=== PATIENT | male | born 1980 | race Caucasian/White ===

== ENCOUNTER → 2018-05-20 | Outpatient (CLI) | payer BC ==
[~2018-05-20] MED LIST: AC500T PO; ACHYD1T PO; CPR250T PO; CPR500T PO; FEXO30TA17 PO; HYDR-229 PO; HYDR-2890 PO; HYDR1TAB PO; HYOS0.1216 PO; PHEN200T16 PO; PHEN200T27 PO; PRD20T PO; PRM25T PO; SULF-222 PO
--- NOTE | 2018-05-20 13:14 | Diagnostic Imaging Report ---
INDICATION: Joint pain and swelling. Study is performed to evaluate for an inflammatory arthritis. EXAMINATION: Multiple views of bilateral feet were obtained. FINDINGS: MTP and interphalangeal joints are unremarkable apart from mild degenerative changes of the first MTP joints bilaterally with mild joint space narrowing. No osseous erosive changes are seen. There are no fractures. Midfoot and hindfoot are unremarkable bilaterally. Soft tissues are unremarkable. IMPRESSION: Essentially unremarkable bilateral feet. No acute finding is seen. No osseous erosive changes are detected. Dictated by: Dictated on workstation # [id number]
--- NOTE | 2018-05-20 13:17 | Diagnostic Imaging Report ---
INDICATION: Pain and swelling in the joints. TIME OF EXAM: 11:08 a.m. FINDINGS: Multiple views of bilateral hands were obtained. MCP and interphalangeal joints are unremarkable bilaterally. No significant joint space narrowing is seen. No osseous erosions or bony production is seen. Soft tissues are unremarkable. Carpi are unremarkable. There are no fractures. IMPRESSION: Unremarkable bilateral hand radiographs. Dictated by: Dictated on workstation # [id number]
== END ==
LOC: RAD 10:45
PROVIDERS: ATTEND Internal Medicine Rheumatology
DX: M19.041 Primary osteoarthritis, right hand (principal); M19.042 Primary osteoarthritis, left hand; M19.072 Primary osteoarthritis, left ankle and foot; M19.071 Primary osteoarthritis, right ankle and foot

== ENCOUNTER 2018-10-27 13:10 | Emergency (ER) | payer BC ==
[~2018-10-27] VITALS: Ht 182.9 cm; Wt 117.9 kg
[2018-10-27] MEDS ORDERED: LOSA50TA63 PO (13:42)
[2018-10-27] MEDS ORDERED: DEXT30TA12 (13:42)
[2018-10-27] MEDS ORDERED: CELE-63 (13:42)
[2018-10-27] MEDS ORDERED: LYRICA (13:42)
[2018-10-27] MEDS ORDERED: KETOROLAC 30 MG/ML VIAL IVP ONE (13:45)
[2018-10-27 13:48] LABS: BASOPHILS # (AUTO) 0.1 10^3/uL (0.0-0.1); BASOPHILS % (AUTO) 2 % (0-10); EOSINOPHILS # (AUTO) 0.2 10^3/uL (0.0-0.3); EOSINOPHILS % (AUTO) 2 % (0-10); HEMATOCRIT 45 % (40-54); HEMOGLOBIN 15.4 G/DL (13.3-17.7); LYMPHOCYTES # (AUTO) 3.1 X 10^3 (1.0-4.0); LYMPHOCYTES % (AUTO) 36 % (12-44); MEAN CORPUSCULAR HEMOGLOBIN 30 PG (25-34); MEAN CORPUSCULAR HGB CONC 34 G/DL (32-36); MEAN CORPUSCULAR VOLUME 86 FL (80-99); MEAN PLATELET VOLUME 10.1 FL (7.4-10.4); MONOCYTES # (AUTO) 0.8 X 10^3 (0.0-1.0); MONOCYTES % (AUTO) 10 % (0-12); NEUTROPHILS # (AUTO) 4.2 X 10^3 (1.8-7.8); NEUTROPHILS % (AUTO) 50 % (42-75); PLATELET COUNT 275 10^3/uL (130-400); RED CELL DISTRIBUTION WIDTH 14.2 % (10.0-14.5); WHITE BLOOD COUNT 8.4 10^3/uL (4.3-11.0)
[2018-10-27] MEDS ORDERED: NS IV 1000 ML 1,000 ML ONE (13:53)
[2018-10-27 13:57] LABS: BUN/CREATININE RATIO 18; CALCIUM 9.4 MG/DL (8.5-10.1); CARBON DIOXIDE 22 MMOL/L (21-32); CHLORIDE 107 MMOL/L (98-107); GFR ESTIMATED > 60; GLUCOSE 129 MG/DL (70-105); POTASSIUM 4.1 MMOL/L (3.6-5.0); SODIUM 140 MMOL/L (135-145)
[2018-10-27] MEDS ORDERED: NS IV 1000 ML 1,000 ML IV SCH (14:00)
--- NOTE | 2018-10-27 14:04 | ED GU-Female ---
General Chief Complaint: - Urinary Stated Complaint: LOWER BACK PAIN Nursing Triage Note: PATIENT STATES THAT HE IS HERE FOR KIDNEY STONES. HE HAS A HX OF STONES AND PASSED 2-3 SMALL STONES ABOUT A WEEK AGO. PATIETN STATES HE HAS NOT URINATED IN SEVERAL HOURS BUT FEELS LIKE HE NEEDS TO. Nursing Sepsis Screen: No Definite Risk Source: patient Exam Limitations: no limitations History of Present Illness Date Seen by Provider: Oct 27, 2018 Time Seen by Provider: 14:03 Initial Comments To ER with reports of a kidney stone. He's had right flank pain for about 2 weeks, he's passed 2 stones he states. Today the pain radiates from the right flank to the tip of the penis. No vomiting. No fevers or chills. He does have urinary frequency. States he is otherwise healthy with the exception of some ch ronic joint pains and is scheduled to see the [facility] for his fibromyalgia. Timing/Duration: constant Severity/Quality: moderate Location: right flank Radiation: none Activities at Onset: none Prior Genitourinary Problems: none Associated Symptoms: dysuria Allergies and Home Medications Allergies Coded Allergies: No Known Drug Allergies (Unverified , 11/10/10) Home Medications Hydrocodone Bit/Acetaminophen 1 Tab Tablet, 1-2 TAB PO Q4H PRN, (Reported) PRN PAIN Hydrocodone/Acetaminophen 1 Each Tablet, 1 TAB PO Q4-6HR Prescribed by: BROOKE MUKHERJEE on 10/27/18 152 Hyoscyamine Sulfate 0.125 Mg Tab, 1-2 TAB PO Q4HR PRN, (Reported) PRN BLADDER PAIN Ketorolac Tromethamine 10 Mg Tablet, 10 MG PO Q8H PRN for PAIN-MODERATE TO SEVERE Prescribed by: BROOKE MUKHERJEE on 10/27/18 152 Phenazopyridine Hcl 200 Mg Tablet, 200 MG PO TID PRN, (Reported) PRN BLADDER SPASMS Sulfamethoxazole/Trimethoprim 1 Each Tablet, 1 EACH PO BID Prescribed by: BROOKE MUKHERJEE on 10/27/18 1523 Patient Home Medication List Home Medication List Reviewed: Yes Review of Systems Review of Systems Constitutional: see HPI EENTM: see HPI Respiratory: no symptoms reported Cardiovascular: no symptoms reported Genitourinary: see HPI Musculoskeletal: no symptoms reported Skin: no symptoms reported Psychiatric/Neurological: No Symptoms Reported Endocrine: No Symptoms Reported Past Mtubcpv-Rhwaab-Eczsqt Hx Patient Social History Alcohol Use: Occasionally Uses Recreational Drug Use: No Smoking Status: Never a Smoker 2nd Hand Smoke Exposure: No Recent Foreign Travel: No Contact w/Someone Who Travel: No Recent Infectious Disease Expo: No Immunizations Up To Date Tetanus Booster (TDap): Unknown Past Medical History Surgeries: Yes (arthroscopic surgery left knee x2, cervical spine surgery) Respiratory: No Cardiac: Yes Neurological: No Reproductive Disorders: No Sexually Transmitted Disease: No HIV/AIDS: No Kidney Stones Gastrointestinal: Yes (acute gastroenteritis) Musculoskeletal: Yes (CERVICAL SX c5-c6 fusion) Endocrine: No Cancer: No Psychosocial: No Integumentary: No Blood Disorders: No Adverse Reaction/Blood Tranf: No Family Medical History No Pertinent Family Hx Physical Exam Vital Signs Vital Signs - First Documented 10/27/18 13:17 Temp 99.0 Pulse 66 Resp 22 B/P (MAP) 158/118 (131) Pulse Ox 98 Capillary Refill : Less Than 3 Seconds Height, Weight, BMI Height: 6'0.00" Weight: 260lbs. 0oz. 117.984558qa; 37.29 BMI Method:Actual General Appearance: WD/WN, no apparent distress HEENT: PERRL/EOMI, normal ENT inspection Respiratory: no respiratory distress, no accessory muscle use Extremities: normal range of motion, non-tender Neurologic/Psychiatric: alert, normal mood/affect, oriented x 3 Skin: normal color, warm/dry Progress/Results/Core Measures Suspected Sepsis Recent Fever Within 48 Hours: No Infection Criteria Present: Suspected New Infection New/Unexplained Altered Menta: No Sepsis Screen: No Definite Risk SIRS Temperature:99.0 Pulse: 66 Respiratory Rate: 22 Laboratory Tests 10/27/18 13:22: White Blood Count 8.4 Blood Pressure 158 /118 Mean: 131 Laboratory Tests 10/27/18 13:22: Creatinine 0.90, Platelet Count 275 Results/Orders Lab Results Laboratory Tests Test 10/27/18 13:22 10/27/18 13:57 Range/Units White Blood Count 8.4 4.3-11.0 10^3/uL Red Blood Count 5.22 4.35-5.85 10^6/uL Hemoglobin 15.4 13.3-17.7 G/DL Hematocrit 45 40-54 % Mean Corpuscular Volume 86 80-99 FL Mean Corpuscular Hemoglobin 30 25-34 PG Mean Corpuscular Hemoglobin Concent 34 32-36 G/DL Red Cell Distribution Width 14.2 10.0-14.5 % Platelet Count 275 130-400 10^3/uL Mean Platelet Volume 10.1 7.4-10.4 FL Neutrophils (%) (Auto) 50 42-75 % Lymphocytes (%) (Auto) 36 12-44 % Monocytes (%) (Auto) 10 0-12 % Eosinophils (%) (Auto) 2 0-10 % Basophils (%) (Auto) 2 0-10 % Neutrophils # (Auto) 4.2 1.8-7.8 X 10^3 Lymphocytes # (Auto) 3.1 1.0-4.0 X 10^3 Monocytes # (Auto) 0.8 0.0-1.0 X 10^3 Eosinophils # (Auto) 0.2 0.0-0.3 10^3/uL Basophils # (Auto) 0.1 0.0-0.1 10^3/uL Sodium Level 140 135-145 MMOL/L Potassium Level 4.1 3.6-5.0 MMOL/L Chloride Level 107 98-107 MMOL/L Carbon Dioxide Level 22 21-32 MMOL/L Anion Gap 11 5-14 MMOL/L Blood Urea Nitrogen 16 7-18 MG/DL Creatinine 0.90 0.60-1.30 MG/DL Estimat Glomerular Filtration Rate > 60 BUN/Creatinine Ratio 18 Glucose Level 129 H 70-105 MG/DL Calcium Level 9.4 8.5-10.1 MG/DL Urine Color YELLOW Urine Clarity VERY CLOUDY H Urine pH 5 5-9 Urine Specific Walsh 1.025 H 1.016-1.022 Urine Protein 3+ H NEGATIVE Urine Glucose (UA) NEGATIVE NEGATIVE Urine Ketones NEGATIVE NEGATIVE Urine Nitrite POSITIVE H NEGATIVE Urine Bilirubin NEGATIVE NEGATIVE Urine Urobilinogen NORMAL NORMAL MG/DL Urine Leukocyte Esterase 2+ H NEGATIVE Urine RBC (Auto) 5+ H NEGATIVE Urine RBC TNTC H /HPF Urine WBC 50-100 H /HPF Urine Squamous Epithelial Cells NONE /HPF Urine Crystals PRESENT H /LPF Urine Calcium Oxalate Crystals RARE H /LPF Urine Bacteria MODERATE H /HPF Urine Casts NONE /LPF Urine Mucus SMALL H /LPF Urine Culture Indicated YES Urine Opiates Screen NEGATIVE NEGATIVE Urine Oxycodone Screen NEGATIVE NEGATIVE Urine Methadone Screen NEGATIVE NEGATIVE Urine Propoxyphene Screen NEGATIVE NEGATIVE Urine Barbiturates Screen NEGATIVE NEGATIVE Ur Tricyclic Antidepressants Screen NEGATIVE NEGATIVE Urine Phencyclidine Screen NEGATIVE NEGATIVE Urine Amphetamines Screen POSITIVE H NEGATIVE Urine Methamphetamines Screen NEGATIVE NEGATIVE Urine Benzodiazepines Screen NEGATIVE NEGATIVE Urine Cocaine Screen NEGATIVE NEGATIVE Urine Cannabinoids Screen NEGATIVE NEGATIVE My Orders Orders - BROOKE MUKHERJEE APRN Ua Culture If Indicated (10/27/18 13:42) Cbc With Automated Diff (10/27/18 13:42) Basic Metabolic Panel (10/27/18 13:42) Ed Iv/Invasive Line Start (10/27/18 13:42) Ketorolac Injection (Toradol Injection) (10/27/18 13:45) Ns Iv 1000 Ml (Sodium Chloride 0.9%) (10/27/18 14:00) Drug Screen Stat (Urine) (10/27/18 13:58) Abdomen/Kub 1view (10/27/18 13:58) Ct Abd/Pelvis Wo(Kidney Stone) (10/27/18 13:58) Ns Iv 1000 Ml (Sodium Chloride 0.9%) (10/27/18 13:53) Urine Culture (10/27/18 13:57) Ceftriaxone For Iv Use (Rocephin For I (10/27/18 14:30) Medications Given in ED Current Medications Medications Dose Ordered Sig/Javier Route Start Time Stop Time Status Last Admin Dose Admin Ceftriaxone Sodium 1000 mg/ Sterile Water 10 ml @ 200 mls/hr ONCE ONCE IV 10/27/18 14:30 10/27/18 14:32 DC 10/27/18 14:48 200 MLS/HR Ketorolac Tromethamine 15 mg ONCE ONCE IVP 10/27/18 13:45 10/27/18 13:46 DC 10/27/18 14:02 15 MG Vital Signs/I&O 10/27/18 13:17 Temp 99.0 Pulse 66 Resp 22 B/P (MAP) 158/118 (131) Pulse Ox 98 Capillary Refill : Less Than 3 Seconds Blood Pressure Mean: 131 Departure Impression Primary Impression: Right ureteral stone Additional Impression: Urinary tract infection Qualified Codes: N30.01 - Acute cystitis with hematuria Disposition: HOME, SELF-CARE Condition: Stable Departure-Patient Inst. Decision time for Depature: 14:41 Referrals: ARSEN RUCKER MD (PCP/Family) Primary Care Physician ROHINI GONZALEZ MD Patient Instructions: Kidney Stone Diet, Urinary Tract Infection, Adult (DC) Add. Discharge Instructions: 1. Return to ER for any concerns 2. Follow-up with Dr. Gonzalez. See Dr Gonzalez tomorrow at 11am. Take the antibiotic as directed. Return to ER for any worsening uncontrollable pain, fevers or nausea/vomiting. All discharge instructions reviewed with patient and/or family. Voiced understanding. Scripts Sulfamethoxazole/Trimethoprim (Bactrim Ds Tablet) 1 Each Tablet 1 EACH PO BID, #20 TAB Prov: BROOKE MUKHERJEE APRN 10/27/18 Ketorolac Tromethamine (Ketorolac Tromethamine) 10 Mg Tablet 10 MG PO Q8H PRN for PAIN-MODERATE TO SEVERE, #9 TAB Prov: BROOKE MUKHERJEE APRN 10/27/18 Hydrocodone/Acetaminophen (Merigold 5-325 Tablet) 1 Each Tablet 1 TAB PO Q4-6HR for Pain MDD 10 TABS for 7 Days, #30 TAB Prov: BROOKE MUKHERJEE APRN 10/27/18 Work/School Note: Work Release Form Date Seen in the Emergency Department: Oct 27, 2018 Return to Work: Oct 30, 2018 Copy Copies To 1: ROHINI GONZALEZ MD, PETER J APRN Oct 27, 2018 14:04
[2018-10-27 14:05] LABS: BILIRUBIN,URINE NEGATIVE (NEGATIVE); CLARITY,URINE VERY CLOUDY; COLOR,URINE YELLOW; GLUCOSE, URINE (UA) NEGATIVE (NEGATIVE); KETONES,URINE NEGATIVE (NEGATIVE); LEUKOCYTE ESTERASE ,URINE 2+ (NEGATIVE); NITRITE,URINE POSITIVE (NEGATIVE); PH,URINE 5 (5-9); PROTEIN,URINE 3+ (NEGATIVE); UROBILINOGEN,URINE NORMAL (NORMAL)
[2018-10-27 14:13] LABS: RBC,URINE TNTC /HPF
[2018-10-27 14:14] LABS: BACTERIA,URINE MODERATE /HPF; CALCIUM OXALATE CRYSTALS,UR RARE /LPF; WBC,URINE 50-100 /HPF
[2018-10-27 14:18] LABS: AMPHETAMINE SCREEN, URINE POSITIVE (NEGATIVE); BARBITURATE SCREEN URINE NEGATIVE (NEGATIVE); BENZODIAZEPINES SCREEN URINE NEGATIVE (NEGATIVE); CANNABINOID SCREEN, URINE NEGATIVE (NEGATIVE); COCAINE SCREEN URINE NEGATIVE (NEGATIVE); METHADONE STAT NEGATIVE (NEGATIVE); METHAMPHETAMINE SCREEN URINE S NEGATIVE (NEGATIVE); OPIATE SCREEN URINE NEGATIVE (NEGATIVE); OXYCODONE STAT NEGATIVE (NEGATIVE); PROPOXYPHENE STAT NEGATIVE (NEGATIVE); TRICYCLIC ANTIDEPRESSANTS SCRE NEGATIVE (NEGATIVE)
[2018-10-27] MEDS ORDERED: cefTRIAXone FOR IV USE 1,000 MG in WATER (STERILE) FOR INJECTION 10 ML IV ONE (14:30)
--- NOTE | 2018-10-27 14:50 | Diagnostic Imaging Report ---
REASON FOR EXAM: Renal stones. COMPARISON: None TECHNIQUE: frontal supine view of the abdomen FINDINGS: Calcification is seen in the right aspect of the pelvis in the expected location of the distal right ureter, suspicious for renal calculi. The bowel gas pattern is nondistended. No large collection of free intraperitoneal air is seen. Scattered small amounts of gas and fecal material are present in the colon. The osseous structures are age-appropriate. IMPRESSION: Calcification in the right aspect of the pelvis in the expected location of the distal right ureter, suspicious for renal calculi. Dictated by: Dictated on workstation # [id number]
--- NOTE | 2018-10-27 14:57 | Diagnostic Imaging Report ---
PROCEDURE: CT urinary tract, rule out kidney stone. TECHNIQUE: Multiple contiguous axial images were obtained through the abdomen and pelvis without the use of intravenous contrast. Auto Exposure Controls were utilized during the CT exam to meet ALARA standards for radiation dose reduction. INDICATION: Low back pain. History of kidney stones. COMPARISON: Abdominal radiograph 01/05/2013. FINDINGS: 1.0 cm renal stone in the distal right ureter near the ureterovesicular junction. This results in moderate right ureteral pyelocaliectasis. Nonobstructing 0.3 cm calyceal tip renal stone in the upper pole the left kidney. There is also nonobstructing 0.3 cm renal stone in the proximal left ureter near the ureteropelvic junction. Lung bases are clear. The liver, gallbladder, pancreas, spleen, adrenals, appendix and bladder are negative. Mild colonic diverticulosis without evidence of active diverticulitis. No lymphadenopathy. No free intraperitoneal air or fluid. No evidence of bowel obstruction. No acute osseous findings. IMPRESSION: 1.0 cm obstructing renal stone near the right ureterovesicular junction resulting in moderate right hydronephrosis. There is also a nonobstructing 0.3 cm renal stone in the ureteropelvic junction on the left. Dictated by: Dictated on workstation # [id number]
[2018-10-27] MEDS ORDERED: KETO10TA PO (15:23)
[2018-10-27] MEDS ORDERED: SULF1TAB35 PO (15:23)
[2018-10-27] MEDS ORDERED: HYDR-4226 PO (15:23)
[2018-10-27] MEDS ORDERED: HYDROcodone/APAP 5 MG/325 MG (LORTAB) TAB ONE (15:30)
[2018-10-27 15:40] VITALS: BP 149/91
[2018-10-27] MEDS ORDERED: HYDROcodone/APAP 5 MG/325 MG (LORTAB) TAB PO ONE (15:45)
== END 2018-10-27 15:40 | disposition home or self-care (01) ==
LOC: EDUNIT# 13:10 → ER 13:11
DX: N13.2 Hydronephrosis with renal and ureteral calculous obstruction (principal); N39.0 Urinary tract infection, site not specified; M79.7 Fibromyalgia; Z98.890 Other specified postprocedural states; Z87.19 Personal history of other diseases of the digestive system
CPT/HCPCS: 36415; 74018; 74176; 80048; 80306; 81000; 85025; 87077; 87088; 87186; 96361; 96365; 96375

== ENCOUNTER 2018-10-31 06:24 | Outpatient (CLI) | payer BC ==
[~2018-10-31] VITALS: Ht 182.9 cm; Wt 117.9 kg
[~2018-10-31 06:24] MED LIST changes: +CELE-63; +DEXT30TA12; +HYDR-4226 PO; +KETO10TA PO; +LOSA50TA63 PO; +LYRICA; +SULF1TAB35 PO
[2018-10-31] MEDS ORDERED: PREG75CA PO (12:22)
[2018-10-31] MEDS ORDERED: AMPH30TA2 PO (12:22)
[2018-10-31] MEDS ORDERED: ACET-2650 PO (12:22)
[2018-10-31] MEDS ORDERED: METR1KIT2 TP (12:22)
[2018-10-31] MEDS ORDERED: CHOL20003 PO (12:22)
[2018-10-31] MEDS ORDERED: TR1C15 TP (12:22)
[2018-10-31] MEDS ORDERED: CELE200C PO (12:22)
[2018-11-01] MEDS ORDERED: TRAM50TA2 PO (08:38)
[2018-11-01] MEDS ORDERED: SULF1TAB35 PO (08:38)
[2018-11-01] MEDS ORDERED: TAMS0.4C98 PO (08:38)
== END 2018-10-31 12:43 | disposition home or self-care (01) ==
LOC: PREOP 06:24
PROVIDERS: ATTEND Urology
DX: Z01.818 Encounter for other preprocedural examination (principal)

== ENCOUNTER 2018-11-01 05:51 | Day surgery (SDC) | payer BC ==
[~2018-11-01] VITALS: Ht 182.9 cm; Wt 117.9 kg
[2018-11-01] VITALS (11 sets, daily range): BP systolic 96–131; BP diastolic 56–81
[~2018-11-01 05:51] MED LIST changes: +ACET-2650 PO; +AMPH30TA2 PO; +CELE200C PO; +CHOL20003 PO; +METR1KIT2 TP; +PREG75CA PO; +TR1C15 TP
--- OUTSIDE RECORDS SUMMARY | 2018-11-01 05:55 | XMS REPORT ---
Author Author DIANDRA GILMAN [facility] eClinicalWorks Address Unknown Phone Unavailable Care Team Providers Care Internet Sales Associate Name Role Phone DIANDRA GILMAN CP Unavailable Allergies No Known Allergies Problems Problem Type Condition Code Onset Dates Condition Status Assessment Encounter for immunization Z23 Active Medications No Known Medications Procedures Procedure Coding System Code Date SINGLE IMMUNIZATION ADMIN CPT-4 23719 Jan 17, 2015 FLUARIX QUAD (3 & UP)-GSK-2014 CPT-4 06149 Jan 17, 2015 Results No Known Results Immunizations Vaccine Administration Date FLUARIX QUAD (3 & UP)-GSK-2014Jan 17, 2015 Summary Purpose eClinicalWorks Submission
--- OUTSIDE RECORDS SUMMARY | 2018-11-01 05:55 | XMS REPORT ---
Author Author RITCHIE Queen Organization [facility] Address [address] [place] [address] Care Team Providers Care Magneto Specialist Name Role Phone Bernice RITCHIE Unavailable PROBLEMS Type Condition ICD9-CM Code [id number] Code Onset Dates Condition Status SNOMED Code Problem Reactive depression F32.9 Active [id number] ALLERGIES No Information ENCOUNTERS Encounter Location Date Diagnosis [place] [id number] [place] [phone] Jan, Reactive depression F32.9 [place] [id number] [place] [phone] Dec, Reactive depression F32.9 [place] [id number] [place] [phone] Nov, Reactive depression F32.9 [place] [id number] [place] [phone] Nov, Reactive depression F32.9 [place] [id number] [place] [phone] Jan, Encounter for immunization Z23 IMMUNIZATIONS No Known Immunizations SOCIAL HISTORY Never Assessed REASON FOR VISIT f/u PLAN OF CARE Activity Details Follow Up Next available, 6 Weeks Reason:Depression VITAL SIGNS MEDICATIONS Unknown Medications RESULTS No Results PROCEDURES Procedure Date Ordered Result Body Site Psychotherapy, patient &/family, 45 minutes, established patient Jan 15, 2017 INSTRUCTIONS MEDICATIONS ADMINISTERED No Known Medications
--- OUTSIDE RECORDS SUMMARY | 2018-11-01 05:55 | XMS REPORT ---
Author Author RITCHIE Queen Organization [facility] Address [address] [place] [address] Care Team Providers Care Tailings Man Name Role Phone Bernice RITCHIE Unavailable PROBLEMS Type Condition ICD9-CM Code [id number] Code Onset Dates Condition Status SNOMED Code Problem Reactive depression F32.9 Active [id number] ALLERGIES No Information ENCOUNTERS Encounter Location Date Diagnosis [place] [id number] [place] [phone] Jan, Reactive depression F32.9 [place] [id number] [place] [phone] Dec, Reactive depression F32.9 [place] [id number] [place] [phone] Nov, Reactive depression F32.9 [place] [id number] [place] [phone] Nov, Reactive depression F32.9 [place] [id number] [place] [phone] Jan, Encounter for immunization Z23 IMMUNIZATIONS No Known Immunizations SOCIAL HISTORY Never Assessed REASON FOR VISIT F/U PLAN OF CARE Activity Details Follow Up Next available Reason:Depression, anger VITAL SIGNS MEDICATIONS Unknown Medications RESULTS No Results PROCEDURES Procedure Date Ordered Result Body Site Psychotherapy, patient &/family, 60 minutes, established patient Dec 16, 2016 INSTRUCTIONS MEDICATIONS ADMINISTERED No Known Medications
--- OUTSIDE RECORDS SUMMARY | 2018-11-01 05:56 | XMS REPORT | Continuity of Care Document ---
Author Author [facility] Organization [facility] Address Unknown Phone Unavailable Care Team Providers Care Equity Structurer Name Role Phone ARSEN RUCKER MD PP Insurance Providers Payer Name Policy Number Subscriber Name Relationship [facility] [id number] Colt Borges 01 Self / Same As Patient Advance Directives Directive Response Recorded Date Advance Directives N 12/21/12 8:26am Health Care Power of Offshore Wind Turbine Technician N 12/21/12 8:26am Organ Donor Y 12/21/12 8:26am Problems No Known Problems or Medical conditions. Family History History Response Recorded Date/Time Hx Family Cancer Y 12/12/12 11:40am Hx Family Breast Cancer Y mother of breast ca 12/12/12 11:40am Hx Family Cardiac Disorders Y father has cardiac stents 12/12/12 11:40am Hx Family Stroke Y father 12/12/12 11:40am Hx Family Hypertension Y father 12/12/12 11:40am Social History History Response Recorded Date/Time Alcohol Use Denies Use 12/12/12 11:35am Recreational Drug Use N 12/12/12 11:35am Recent Foreign Travel N 12/12/12 11:35am Recent Infectious Disease Exposure N 12/12/12 11:35am Hospitalization with Isolation Denies 12/14/12 5:09pm Sexually Transmitted Disease N 12/12/12 11:35am HIV/AIDS N 12/12/12 11:35am Allergies, Adverse Reactions, Alerts Allergen Type Severity Reaction Last Updated No Known Drug Allergies 11/10/10 Medications Medication Dose Units Route Sig Qty Days Acetaminophen/Hydrocodone Bitart (Lorcet Plus 10/325 Mg) 1 - 2 Tab PO Q4H PRN Hyoscyamine Sulfate (Levsin 0.125 Mg Tab) 1 - 2 Tab PO Q4HR PRN Phenazopyridine Hcl (Pyridium) 200 Mg PO TID PRN Ciprofloxacin HCl (Cipro) 250 Mg PO BID Acetaminophen (Tylenol) 1000 Mg PO DAILY PRN Phenazopyridine Hcl 200 Mg PO BID Ciprofloxacin (Cipro) 500 Mg PO BID Trimethoprim/Sulfamethoxazole (Bactrim Ds) 1 Ea PO BID 7 Promethazine HCl (Phenergan 25 Mg) 1 Tab PO QID PRN 10 Acetaminophen/Hydrocodone Bitart (Vicodin 5-500 Tablet) 1 - 2 Each PO Q4HR PRN 14 Prednisone 20 Mg PO DAILY 20 Acetaminophen/Hydrocodone Bitart (Lortab 10-500 Tablet) 1 Each PO Q 4 - 6 HRS PRN 30 Hydrocodone Bit/Acetaminophen (Hydrocodon-Acetaminophn 10-325) 1 Each PO Q6H Fexofenadine HCl (Pratibha) 1 Each PO DAILY Response Recorded Date/Time Status not known Unknown Results Test Date Result Interp. Ref. Range Alanine Aminotransferase (ALT/SGPT) December 12, 2012 7:25am 63 U/L N 30-65 Albumin December 12, 2012 7:25am 3.7 G/DL N 3.4-5.0 Alkaline Phosphatase December 12, 2012 7:25am 73 U/L N 50-136 Amylase Level October 14, 2012 9:19pm 32 U/L N 25-115 Aspartate Amino Transf (AST/SGOT) December 12, 2012 7:25am 23 U/L N 15-37 BUN/Creatinine Ratio December 12, 2012 7:25am 9 - Band Neutrophils November 18, 2012 6:35pm 8 % - Basophils # (Auto) December 12, 2012 7:25am 0.2 10^3/uL H 0.0-0.1 Basophils % (Manual) November 18, 2012 6:35pm 0 % - Basophils (%) (Auto) December 12, 2012 7:25am 3 % N 0-10 Blood Urea Nitrogen December 12, 2012 7:25am 9 MG/DL N 7-18 Calcium Level December 12, 2012 7:25am 8.5 MG/DL N 8.5-10.1 Carbon Dioxide Level December 12, 2012 7:25am 27 MMOL/L N 21-32 Chloride Level December 12, 2012 7:25am 103 MMOL/L N 101-110 Creatinine December 12, 2012 7:25am 1.0 MG/DL N 0.6-1.3 Eosinophils # (Auto) December 12, 2012 7:25am 0.1 10^3/uL N 0.0-0.3 Eosinophils % (Manual) November 18, 2012 6:35pm 0 % - Eosinophils (%) (Auto) December 12, 2012 7:25am 2 % N 0-10 Glucose Level December 12, 2012 7:25am 129 MG/DL H 74-106 Hematocrit December 12, 2012 7:25am 41 % N 40-54 Hemoglobin December 12, 2012 7:25am 13.9 G/DL N 13.3-17.7 Hemoglobin A1c December 13, 2012 5:00am 5.9 % N 4.5-6.2 Lipase November 18, 2012 6:35pm 85 U/L N 73-393 Lymphocytes # (Auto) December 12, 2012 7:25am 3.0 X 10^3 N 1.0-4.0 Lymphocytes % (Manual) November 18, 2012 6:35pm 4 % - Lymphocytes (%) (Auto) December 12, 2012 7:25am 41 % N 12-44 Mean Corpuscular Hemoglobin December 12, 2012 7:25am 29 PG N 25-34 Mean Corpuscular Hemoglobin Concent December 12, 2012 7:25am 34 G/DL N 32-36 Mean Corpuscular Volume December 12, 2012 7:25am 87 FL N 80-99 Mean Platelet Volume December 12, 2012 7:25am 9.8 FL N 7.4-10.4 Metamyelocytes % January 18, 2006 10:25am 1 - Monocytes # (Auto) December 12, 2012 7:25am 0.7 X 10^3 N 0.0-1.0 Monocytes % (Manual) November 18, 2012 6:35pm 2 % - Monocytes (%) (Auto) December 12, 2012 7:25am 10 % N 0-12 Monoscreen February 07, 2006 9:16pm Negative - Neutrophils # (Auto) December 12, 2012 7:25am 3.3 X 10^3 N 1.8-7.8 Neutrophils % (Manual) November 18, 2012 6:35pm 86 % - Neutrophils (%) (Auto) December 12, 2012 7:25am 45 % N 42-75 Platelet Count December 12, 2012 7:25am 277 10^3/uL N 130-400 Potassium Level December 12, 2012 7:25am 3.8 MMOL/L N 3.6-5.0 RBC Morphology Bizarre Forms January 18, 2006 10:25am Normal - Red Blood Count December 12, 2012 7:25am 4.72 10^6/uL N 4.35-5.85 Red Cell Distribution Width December 12, 2012 7:25am 13.5 % N 10.0-14.5 Semen Volume July 24, 2011 7:20am 3.3 ML N 1.5-5.0 Sodium Level December 12, 2012 7:25am 137 MMOL/L N 135-145 Sperm % Abnormal Morphology July 24, 2011 7:20am 15 % - Sperm % Normal Morphology July 24, 2011 7:20am 85 % - Sperm Count July 24, 2011 7:20am 184 MIL/ML N 60-200 Sperm Motility July 24, 2011 7:20am 50 % - Thyroid Stimulating Hormone (TSH) February 16, 2011 5:15pm 0.72 UIU/ML N 0.34-5.60 Thyroxine (T4) February 17, 2011 7:41am 7.8 UG/DL - Total Bilirubin December 12, 2012 7:25am 0.3 MG/DL N 0.0-1.0 Total Protein December 12, 2012 7:25am 6.8 G/DL N 6.4-8.2 Urine Bacteria December 12, 2012 8:00am FEW /HPF H - Urine Bilirubin December 12, 2012 8:00am 2+ H - Urine Casts December 12, 2012 8:00am NONE /LPF - Urine Clarity December 12, 2012 8:00am SLIGHTLY CLOUDY - Urine Color December 12, 2012 8:00am SAUL H - Urine Crystals December 12, 2012 8:00am NONE /LPF - Urine Culture Indicated December 12, 2012 8:00am YES - Urine Glucose (UA) December 12, 2012 8:00am 1+ H - Urine Granular Casts October 14, 2012 9:04pm RARE /LPF - Urine Hyaline Casts October 14, 2012 9:04pm 0- 2 /LPF H - Urine Ketones December 12, 2012 8:00am NEGATIVE - Urine Leukocyte Esterase December 12, 2012 8:00am NEGATIVE - Urine Mucus December 12, 2012 8:00am MODERATE /LPF H - Urine Nitrite December 12, 2012 8:00am POSITIVE H - Urine Other October 14, 2012 9:04pm FEW SPERM /HPF H - Urine Protein December 12, 2012 8:00am 2+ H - Urine RBC December 12, 2012 8:00am TNTC /HPF H - Urine Specific Ker[place] December 12, 2012 8:00am 1.025 H - Urine Squamous Epithelial Cells December 12, 2012 8:00am 0-2 /HPF - Urine Urobilinogen December 12, 2012 8:00am 4 MG/DL H - Urine WBC December 12, 2012 8:00am 0-2 /HPF - Urine pH December 12, 2012 8:00am 5 - White Blood Count December 12, 2012 7:25am 7.3 10^3/uL N 4.3-11.0 Estimat Glomerular Filtration Rate December 12, 2012 7:25am > 60 - Blood Morphology Comment November 18, 2012 6:35pm NORMAL - Testosterone Level February 17, 2011 7:41am 287 L NG/DL - Urine RBC (Auto) December 12, 2012 8:00am 5+ H - Procedures Procedure Code Date [ESWL] OF THE KIDNEY, URETER AND/OR BLADDER 98.51 12/14/12 CYSTOSCOPY NEC 57.32 12/14/12 URETERAL CATHETERIZATION 59.8 12/14/12 MRSA Screen 12/13/12 Urine Culture 12/12/12 Encounters Encounter Location Date/Time Discharged Inpatient [facility] 12/12/12 10:00am Departed Emergency Room [facility] 11/18/12 5:21pm
--- OUTSIDE RECORDS SUMMARY | 2018-11-01 05:56 | XMS REPORT | Continuity of Care Document ---
Author Author [facility] Organization [facility] Address Unknown Phone Unavailable Care Team Providers Care Phlebotomy Instructor Name Role Phone ARSEN RUCKER MD PP Insurance Providers Payer Name Policy Number Subscriber Name Relationship [facility] [id number] Colt Borges 01 Self / Same As Patient Advance Directives Directive Response Recorded Date Advance Directives N 12/12/12 11:44am Health Care Power of Hooker Laster N 12/12/12 11:44am Organ Donor Y 12/12/12 11:44am Problems No Known Problems or Medical conditions. [...] (Levsin 0.125 Mg Tab) 1 - 2 Each PO Q4HR PRN Phenazopyridine Hcl (Pyridium) 200 [...] 12, 2012 7:25am 13.9 G/DL N 13.3-17.7 Lipase November 18, 2012 6:35pm 85 U/L [...] 8:00am TNTC /HPF H - Urine Specific [place] December 12, 2012 8:00am 1.025 H - [...] 5+ H - Procedures Procedure Code Date Urine Culture 11/18/12 Encounters Encounter Location Date/Time Discharged Inpatient [facility] 12/12/12 10:00am Departed Emergency Room [facility] 11/18/12 5:21pm
--- OUTSIDE RECORDS SUMMARY | 2018-11-01 05:56 | XMS REPORT | Continuity of Care Document ---
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 Social History History Response Recorded Date/Time Alcohol Use Denies Use 11/18/12 5:33pm Recreational Drug Use N 11/18/12 5:33pm Allergies, Adverse Reactions, Alerts Allergen Type Severity Reaction Last Updated No Known Drug Allergies 11/10/10 Medications Medication Dose Units Route Sig Qty Days Trimethoprim/Sulfamethoxazole (Bactrim Ds) 1 Ea PO BID [...] Recorded Date/Time Status not known Unknown Results No Known Relevant Diagnostic Tests, Laboratory Data and/or Discharge Summary. Encounters Encounter Location Date/Time Departed Emergency Room [facility] 11/18/12 5:21pm
--- OUTSIDE RECORDS SUMMARY | 2018-11-01 05:56 | XMS REPORT ---
Author Author RITCHIE HAMM Organization [facility] Address [address] [place] [address] Care Team Providers Care Furniture Builder Name Role Phone RITCHIE HAMM Unavailable PROBLEMS Type Condition ICD9-CM Code DSU50-WC Code Onset Dates Condition Status SNOMED Code Problem Reactive depression F32.9 Active [id number] ALLERGIES No Information ENCOUNTERS Encounter Location Date Diagnosis [facility] [id number] [place] [phone] Jan, Reactive depression F32.9 [facility] [id number] [place] [phone] Dec, Reactive depression F32.9 [facility] [id number] [place] [phone] Nov, Reactive depression F32.9 [facility] [id number] [place] [phone] Nov, Reactive depression F32.9 [facility] [id number] [address] Jan, Encounter for immunization Z23 IMMUNIZATIONS No Known Immunizations SOCIAL HISTORY Never Assessed REASON FOR VISIT Couple Intake PLAN OF CARE Activity Details Follow Up 1 Week Reason:Marriage therapy VITAL SIGNS MEDICATIONS Unknown Medications RESULTS No Results PROCEDURES Procedure Date Ordered Result Body Site Psych diagnostic evaluation, new patient Nov 04, 2016 INSTRUCTIONS MEDICATIONS ADMINISTERED No Known Medications
--- OUTSIDE RECORDS SUMMARY | 2018-11-01 05:57 | XMS REPORT | Continuity of Care Document ---
Author Organization Unknown Address Unknown Phone Unavailable Allergies Active Description Code Type Severity Reaction Onset Reported/Identified Relationship to Patient Clinical Status Yes No Known Drug Allergies [id number] Drug Allergy Unknown N/A 10/31/2018 Medications There is no data. Problems Date Dx Coded Attending Type Code Diagnosis Diagnosed By 11/10/2010 Ot 723.1 CERVICALGIA 11/10/2010 Ot 723.4 BRACHIAL NEURITIS NOS 05/17/2011 Ot 606.9 MALE INFERTILITY NOS 10/21/2011 Ot 606.9 MALE INFERTILITY NOS 10/14/2012 KORY RING MD Ot 569.89 INTESTINAL DISORDERS NEC 10/14/2012 KORY RING MD Ot 789.04 ABDOMINAL PAIN, LEFT LOWER QUADRANT 11/18/2012 KORY RING MD Ot 558.9 NONINF GASTROENTERIT NEC 11/18/2012 KORY RING MD Ot 599.0 URIN TRACT INFECTION NOS 11/18/2012 KORY RING MD Ot 787.91 DIARRHEA 12/14/2012 ARSEN RUCKER MD R Ot 257.2 TESTICULAR HYPOFUNC NEC 12/14/2012 ARSEN RUCKER MD R Ot 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 VARICES 12/14/2012 ARSEN RUCKER MD R Ot 591 HYDRONEPHROSIS 12/14/2012 ARSEN RUCKER MD R Ot 592.1 CALCULUS OF URETER 12/14/2012 ARSEN RUCKER MD R Ot 599.0 URIN TRACT INFECTION NOS 12/14/2012 ARSEN RUCKER MD R Ot 606.9 MALE INFERTILITY NOS 12/21/2012 ROHINI GONZALEZ MD Ot 592.1 CALCULUS OF URETER 04/05/2013 ROHINI GONZALEZ MD Ot 592.9 URINARY CALCULUS NOS 10/09/2014 Ot 723.4 10/09/2014 Ot 456.4 10/09/2014 Ot 606.9 10/09/2014 Ot 606.9 10/09/2014 Ot 606.9 10/09/2014 CARLOS GEORGE, ROHINI Lomeli Ot 592.9 10/09/2014 CARLOS GEORGE, ROHINI Lomeli Ot 592.1 10/09/2014 CARLOS GEORGE, ROHINI Lomeli Ot V72.84 10/09/2014 CARLOS GEORGE, ROHINI Lomeli Ot 592.1 10/09/2014 CARLOS GEORGE, ROHINI Lomeli Ot V45.89 10/09/2014 Ot 592.9 11/14/2014 Ot 723.4 11/14/2014 Ot 456.4 11/14/2014 Ot 606.9 11/14/2014 Ot 606.9 11/14/2014 Ot 606.9 11/14/2014 CARLOS GEORGE, ROHINI Lomeli Ot 592.9 11/14/2014 CARLOS GEORGE, ROHINI Lomeli Ot 592.1 11/14/2014 CARLOS GEORGE, ROHINI Lomeli Ot V72.84 11/14/2014 CARLOS GEORGE, ROHINI Lomeli Ot 592.1 11/14/2014 CARLOS GEORGE, ROHINI Lomeli Ot V45.89 11/14/2014 Ot 592.9 12/27/2014 Ot 723.4 12/27/2014 Ot 456.4 12/27/2014 Ot 606.9 12/27/2014 Ot 606.9 12/27/2014 Ot 606.9 12/27/2014 CARLOS GEORGE, ROHINI Lomeli Ot 592.9 12/27/2014 CARLOS GEORGE, ROHINI Lomeli Ot 592.1 12/27/2014 CARLOS GEORGE, ROHINI Lomeli Ot V72.84 12/27/2014 CARLSO GEORGE, ROHINI A Ot 592.1 12/27/2014 CARLOS GEORGE, ROHINI A Ot V45.89 12/27/2014 Ot 592.9 12/27/2014 ALKA GEORGE, ARSEN R Ot 709.9 03/05/2016 Ot 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 VARICES 03/05/2016 Ot 606.9 MALE INFERTILITY NOS 03/05/2016 Ot 606.9 MALE INFERTILITY NOS 03/05/2016 Ot 606.9 MALE INFERTILITY NOS 03/05/2016 CARLOS GEORGE, ROHINI Lomeli Ot 592.9 URINARY CALCULUS NOS 03/05/2016 ROHINI GONZALEZ MD Ot 592.1 CALCULUS OF URETER 03/05/2016 ROHINI GONZALEZ MD Ot V72.84 EXAM PRE-OPERATIVE NOS 03/05/2016 ROHINI GONZALEZ MD Ot 592.1 CALCULUS OF URETER 03/05/2016 ROHINI GONZALEZ MD Ot V45.89 POSTSURGICAL STATES NEC 03/05/2016 Ot 592.9 URINARY CALCULUS NOS 03/05/2016 ALKA GEORGE, ARSEN R Ot 709.9 SKIN DISORDER NOS 03/09/2016 RADHA NORRIS Ot M54.16 RADICULOPATHY, LUMBAR REGION 03/18/2016 RADHA NORRIS Ot M54.16 RADICULOPATHY, LUMBAR REGION 09/25/2016 Ot 606.9 MALE INFERTILITY NOS 09/25/2016 Ot 606.9 MALE INFERTILITY NOS 09/25/2016 ROHINI GONZALEZ MD Ot 592.9 URINARY CALCULUS NOS 09/25/2016 ROHINI GONZALEZ MD Ot 592.1 CALCULUS OF URETER 09/25/2016 ROHINI GONZALEZ MD Ot V72.84 EXAM PRE-OPERATIVE NOS 09/25/2016 ROHINI GONZALEZ MD Ot 592.1 CALCULUS OF URETER 09/25/2016 ROHINI GONZALEZ MD Ot V45.89 POSTSURGICAL STATES NEC 09/25/2016 Ot 592.9 URINARY CALCULUS NOS 09/25/2016 ARSEN RUCKER MD R Ot 709.9 SKIN DISORDER NOS 09/25/2016 RADHA NORRIS Ot M54.16 RADICULOPATHY, LUMBAR REGION 02/12/2017 Ot 606.9 MALE INFERTILITY NOS 02/12/2017 ROHINI GONZALEZ MD Ot 592.9 URINARY CALCULUS NOS 02/12/2017 ROHINI GONZALEZ MD Ot 592.1 CALCULUS OF URETER 02/12/2017 ROHINI GONZALEZ MD Ot V72.84 EXAM PRE-OPERATIVE NOS 02/12/2017 ROHINI GONZALEZ MD Ot 592.1 CALCULUS OF URETER 02/12/2017 ROHINI GONZALEZ MD Ot V45.89 POSTSURGICAL STATES NEC 02/12/2017 Ot 592.9 URINARY CALCULUS NOS 02/12/2017 ALKA GEORGE, ARSEN R Ot 709.9 SKIN DISORDER NOS 02/12/2017 RADHA NORRIS Ot M54.16 RADICULOPATHY, LUMBAR REGION 05/20/2018 CARLOS GEORGE, ROHINI Lomeli Ot 592.9 URINARY CALCULUS NOS 05/20/2018 CARLOS GEORGE, ROHINI Lomeli Ot 592.1 CALCULUS OF URETER 05/20/2018 CARLOS GEORGE, ROHINI Lomeli Ot V72.84 EXAM PRE-OPERATIVE NOS 05/20/2018 CARLOS GEORGE, ROHINI A Ot 592.1 CALCULUS OF URETER 05/20/2018 CARLOS GEORGE, ROHINI A Ot V45.89 POSTSURGICAL STATES NEC 05/20/2018 Ot 592.9 URINARY CALCULUS NOS 05/20/2018 ALKA GEORGE, ARSEN R Ot 709.9 SKIN DISORDER NOS 05/20/2018 RADHA NORRIS Ot M54.16 RADICULOPATHY, LUMBAR REGION 05/22/2018 HAILEE GEORGE, SAPNA B Ot M19.041 PRIMARY OSTEOARTHRITIS, RIGHT HAND 05/22/2018 HAILEE GEORGE, SAPNA B Ot M19.042 PRIMARY OSTEOARTHRITIS, LEFT HAND 05/22/2018 HAILEE GEORGE, SAPNA B Ot M19.071 PRIMARY OSTEOARTHRITIS, RIGHT ANKLE AND 05/22/2018 HAILEE GEORGE, SAPNA B Ot M19.072 PRIMARY OSTEOARTHRITIS, LEFT ANKLE AND F 05/26/2018 HAILEE GEORGE, SAPNA B Ot M19.041 PRIMARY OSTEOARTHRITIS, RIGHT HAND 05/26/2018 HAILEE GEORGE, SAPNA B Ot M19.042 PRIMARY OSTEOARTHRITIS, LEFT HAND 05/26/2018 HAILEE GEORGE, SAPNA B Ot M19.071 PRIMARY OSTEOARTHRITIS, RIGHT ANKLE AND 05/26/2018 HAILEE GEORGE, SAPNA B Ot M19.072 PRIMARY OSTEOARTHRITIS, LEFT ANKLE AND F 06/02/2018 HAILEE GEORGE, SAPNA B Ot M19.041 PRIMARY OSTEOARTHRITIS, RIGHT HAND 06/02/2018 HAILEE GEORGE, SAPNA B Ot M19.042 PRIMARY OSTEOARTHRITIS, LEFT HAND 06/02/2018 HAILEE GEORGE, SAPNA B Ot M19.071 PRIMARY OSTEOARTHRITIS, RIGHT ANKLE AND 06/02/2018 HAILEE GEORGE SAPNA B Ot M19.072 PRIMARY OSTEOARTHRITIS, LEFT ANKLE AND F 07/16/2018 Ot 592.9 URINARY CALCULUS NOS 07/16/2018 ALKA GEORGE, ARSEN Bethea Ot 709.9 SKIN DISORDER NOS 07/16/2018 STACI BRISCOE, RADHA Daniels Ot M54.16 RADICULOPATHY, LUMBAR REGION 07/16/2018 HAILEE GEORGE, SAPNA Ramirez Ot M19.041 PRIMARY OSTEOARTHRITIS, RIGHT HAND 07/16/2018 HAILEE GEORGE, SAPNA Ramirez Ot M19.042 PRIMARY OSTEOARTHRITIS, LEFT HAND 07/16/2018 HAILEE GEORGE, SAPNA Ramirez Ot M19.071 PRIMARY OSTEOARTHRITIS, RIGHT ANKLE AND 07/16/2018 SAPNA STEPHEN MD Ot M19.072 PRIMARY OSTEOARTHRITIS, LEFT ANKLE AND F 10/27/2018 ALKA GEORGE, ARSEN Bethea Ot 709.9 SKIN DISORDER NOS 10/27/2018 STACI BRISCOE, RADHA Daniels Ot M54.16 RADICULOPATHY, LUMBAR REGION 10/27/2018 SAPNA STEPHEN MD Ot M19.041 PRIMARY OSTEOARTHRITIS, RIGHT HAND 10/27/2018 SAPNA STEPHEN MD Ot M19.042 PRIMARY OSTEOARTHRITIS, LEFT HAND 10/27/2018 SAPNA STEPHEN MD Ot M19.071 PRIMARY OSTEOARTHRITIS, RIGHT ANKLE AND 10/27/2018 SAPNA STEPHEN MD Ot M19.072 PRIMARY OSTEOARTHRITIS, LEFT ANKLE AND F Procedures Code Description Performed By Performed On 57.32 CYSTOSCOPY NEC 12/14/2012 59.8 URETERAL CATHETERIZATION 12/14/2012 98.51 [ESWL] OF THE KIDNEY, URETER AND/OR BLAD 12/14/2012 Results Test Result Range Complete blood count (CBC) with automated white blood cell (WBC) differential - 10/27/18 13:22 Blood leukocytes automated count (number/volume) 8.4 10*3/uL 4.3-11.0 Blood erythrocytes automated count (number/volume) 5.22 10*6/uL 4.35-5.85 Venous blood hemoglobin measurement (mass/volume) 15.4 g/dL 13.3-17.7 Blood hematocrit (volume fraction) 45 % 40-54 Automated erythrocyte mean corpuscular volume 86 [foz_us] 80-99 Automated erythrocyte mean corpuscular hemoglobin (mass per erythrocyte) 30 pg 25-34 Automated erythrocyte mean corpuscular hemoglobin concentration measurement (mass/volume) 34 g/dL 32-36 Automated erythrocyte distribution width ratio 14.2 % 10.0- 14.5 Automated blood platelet count (count/volume) 275 10*3/uL 130-400 Automated blood platelet mean volume measurement 10.1 [foz_us] 7.4-10.4 Automated blood neutrophils/100 leukocytes 50 % 42-75 Automated blood lymphocytes/100 leukocytes 36 % 12-44 Blood monocytes/100 leukocytes 10 % 0-12 Automated blood eosinophils/100 leukocytes 2 % 0-10 Automated blood basophils/100 leukocytes 2 % 0-10 Blood neutrophils automated count (number/volume) 4.2 10*3 1.8-7.8 Blood lymphocytes automated count (number/volume) 3.1 10*3 1.0-4.0 Blood monocytes automated count (number/volume) 0.8 10*3 0.0- 1.0 Automated eosinophil count 0.2 10*3/uL 0.0-0.3 Automated blood basophil count (count/volume) 0.1 10*3/uL 0.0-0.1 Whole blood basic metabolic panel - 10/27/18 13:22 Serum or plasma sodium measurement (moles/volume) 140 mmol/L 135-145 Serum or plasma potassium measurement (moles/volume) 4.1 mmol/L 3.6-5.0 Serum or plasma chloride measurement (moles/volume) 107 mmol/L 98-107 Carbon dioxide 22 mmol/L 21-32 Serum or plasma anion gap determination (moles/volume) 11 mmol/L 5-14 Serum or plasma urea nitrogen measurement (mass/volume) 16 mg/dL 7-18 Serum or plasma creatinine measurement (mass/volume) 0.90 mg/dL 0.60-1.30 Serum or plasma urea nitrogen/creatinine mass ratio 18 NRG Serum or plasma creatinine measurement with calculation of estimated glomerular filtration rate > NRG Serum or plasma glucose measurement (mass/volume) 129 mg/dL 70-105 Serum or plasma calcium measurement (mass/volume) 9.4 mg/dL 8.5-10.1 Complete urinalysis with reflex to culture - 10/27/18 13:57 Urine color determination YELLOW NRG Urine clarity determination VERY CLOUDY NRG Urine pH measurement by test strip 5 5-9 Specific gravity of urine by test strip 1.025 1.016-1.022 Urine protein assay by test strip, semi-quantitative 3+ NEGATIVE Urine glucose detection by automated test strip NEGATIVE NEGATIVE Erythrocytes detection in urine sediment by light microscopy 5+ NEGATIVE Urine ketones detection by automated test strip NEGATIVE NEGATIVE Urine nitrite detection by test strip POSITIVE NEGATIVE Urine total bilirubin detection by test strip NEGATIVE NEGATIVE Urine urobilinogen measurement by automated test strip (mass/volume) NORMAL NORMAL Urine leukocyte esterase detection by dipstick 2+ NEGATIVE Automated urine sediment erythrocyte count by microscopy (number/high power field) TNTC NRG Automated urine sediment leukocyte count by microscopy (number/high power field) [HPF] NRG Bacteria detection in urine sediment by light microscopy MODERATE NRG Squamous epithelial cells detection in urine sediment by light microscopy NONE NRG Crystals detection in urine sediment by light microscopy PRESENT NRG Casts detection in urine sediment by light microscopy NONE NRG Mucus detection in urine sediment by light microscopy SMALL NRG Complete urinalysis with reflex to culture YES NRG Calcium oxalate crystals detection in urine sediment by light microscopy RARE NRG Urine drug screening test - 10/27/18 13:57 Urine phencyclidine detection by screening method NEGATIVE NEGATIVE Urine benzodiazepines detection by screening method NEGATIVE NEGATIVE Urine cocaine detection NEGATIVE NEGATIVE Urine amphetamines detection by screening method POSITIVE NEGATIVE Urine methamphetamine detection by screening method NEGATIVE NEGATIVE Urine cannabinoids detection by screening method NEGATIVE NEGATIVE Urine opiates detection by screening method NEGATIVE NEGATIVE Urine barbiturates detection NEGATIVE NEGATIVE Screening urine tricyclic antidepressants detection NEGATIVE NEGATIVE Urine methadone detection by screening method NEGATIVE NEGATIVE Urine oxycodone detection NEGATIVE NEGATIVE Urine propoxyphene detection NEGATIVE NEGATIVE Bacterial urine culture - 10/27/18 13:57 Bacterial urine culture [id number] NRG COLONY COUNT >100,000/ML NRG FTX;REPORTABLE SUSCEPTIBILITY REPORTED 10/29 08:30 NRG Dirithromycin susceptibility test by disk diffusion - 10/27/18 13:57 Oxacillin susceptibility test by minimum inhibitory concentration <= NRG Vancomycin susceptibility test by minimum inhibitory concentration 2 NRG Levofloxacin susceptibility test by minimum inhibitory concentration <= NRG Rifampin susceptibility test by minimum inhibitory concentration <= NRG Cefazolin susceptibility test by minimum inhibitory concentration <= NRG Nitrofurantoin susceptibility test by minimum inhibitory concentration <= NRG Penicillin G susceptibility test by minimum inhibitory concentration 0.25 NRG Encounters ACCT No. Visit Date/Time Discharge Status Pt. Type Provider Facility Loc./Unit Complaint [id number] 10/31/2018 06:24:00 10/31/2018 12:43:00 DIS Outpatient ROHINI GONZALEZ MD [facility] PREOP RIGHT STONE BASKETING POSSIBLE ESWL [id number] 10/27/2018 13:11:00 10/27/2018 15:40:00 DIS Emergency MUKHERJEEBROOKE APRN [facility] ER LOWER BACK PAIN [id number] 05/20/2018 10:45:00 05/20/2018 23:59:59 CLS Outpatient SAPNA STEPHEN MD [facility] RAD M19.90 [id number] 03/05/2016 16:22:00 03/05/2016 23:59:59 CLS Outpatient RADHA NORRIS [facility] RAD LUMBAR RADICULOPATHY [id number] 11/28/2014 16:46:00 11/28/2014 23:59:59 CLS Outpatient ALKA GEORGE, ARSEN Bethea [facility] LAB SKIN REACTION [id number] 01/07/2013 05:00:00 04/05/2013 00:01:00 DIS Outpatient ROHINI GONZALEZ MD [facility] LAB STONE [id number] 01/07/2013 06:13:00 01/07/2013 23:59:59 CLS Outpatient [id number] 01/05/2013 14:39:00 01/05/2013 23:59:59 CLS Outpatient ROHINI GONZALEZ MD [facility] RAD RT URETER STONE [id number] 12/21/2012 08:03:00 12/21/2012 12:27:00 DIS Outpatient ROHINI GONZALEZ MD [facility] SDC RIGHT PROXIMAL URETERAL STONE [id number] 12/20/2012 08:37:00 12/20/2012 23:59:59 CLS Outpatient ROHINI GONZALEZ MD [facility] PREOP RIGHT PROXIMAL URETERAL STONE [id number] 12/19/2012 10:50:00 12/19/2012 23:59:59 CLS Outpatient ROHINI GONZALEZ MD [facility] RAD KIDNEY STONES [id number] 12/12/2012 10:00:00 12/14/2012 16:54:00 DIS Inpatient ALKA GEORGE, ARSEN Bethea [facility] 4TH URINARY TRACT INFECTIONS DZ KIDNEY STONE RIGHT [id number] 11/18/2012 17:21:00 11/18/2012 21:06:00 DIS Emergency KORY RING MD [facility] ER NAUSEA,VOMITING [id number] 10/14/2012 20:55:00 10/14/2012 22:39:00 DIS Emergency KORY RING MD [facility] ER LOWER LEFT ABD PAIN [id number] 11/01/2018 10:00:00 PEN Preadmit CARLOS GEORGE, ROHINI Lomeli [facility] SDC RIGHT URETERAL STONE [id number] 04/06/2013 00:00:00 Document Registration [id number] 10/22/2011 00:00:00 Document Registration [id number] 07/24/2011 07:40:00 Document Registration [id number] 05/18/2011 00:00:00 Document Registration [id number] 03/18/2011 13:29:00 Document Registration [id number] 02/17/2011 07:00:00 Document Registration [id number] 11/10/2010 16:10:00 Document Registration [id number] 03/18/2010 10:22:00 Document Registration [id number] 11/28/2014 16:47:59 ACT Document Registration [id number] 01/15/2017 16:00:00 01/15/2017 23:59:59 CLS Outpatient KRZYSZTOF CARBAJAL [facility]
--- OUTSIDE RECORDS SUMMARY | 2018-11-01 05:57 | XMS REPORT | Continuity of Care Document ---
Author Author [facility] Organization [facility] Address Unknown Phone Unavailable Care Team Providers Care Pen Rider Name Role Phone ARSEN RUCKER MD PP Insurance Providers Payer Name Policy Number Subscriber Name Relationship [facility] [id number] Colt Borges Rosa 01 Self / Same As Patient Advance Directives Directive Response Recorded Date Advance Directives N 10/14/12 9:00pm Problems No Known Problems or Medical conditions. Social History History Response Recorded Date/Time Alcohol Use Denies Use 10/14/12 9:00pm Recreational Drug Use N 10/14/12 9:00pm Allergies, Adverse Reactions, Alerts Allergen Type Severity Reaction Last Updated No Known Drug Allergies 11/10/10 Medications Medication Dose Units Route Sig Qty Days Acetaminophen/Hydrocodone Bitart (Vicodin 5-500 Tablet) 1 - [...] Encounters Encounter Location Date/Time Departed Emergency Room [facility] 10/14/12 8:55pm
[2018-11-01] MEDS ORDERED: CATHETER FLUSH 10 ML SYR IV PRN (06:45)
[2018-11-01] MEDS ORDERED: ONDANSETRON 4 MG/2 ML (SDV) Z0FRAN IV ONE (06:45)
[2018-11-01] MEDS ORDERED: FAMOTIDINE 20MG/2ML IV (PEPCID) IV ONE (06:45)
[2018-11-01] MEDS ORDERED: cefTRIAXone FOR IV USE 1,000 MG in WATER (STERILE) FOR INJECTION 10 ML IV ONE (06:45)
--- NOTE | 2018-11-01 07:04 | Progress Note-Pre Operative ---
Pre-Operative Progress Note H&P Reviewed The H&P was reviewed, patient examined and no changes noted. Date Seen by Provider: Nov 01, 2018 Time Seen by Provider: 07:04 Date H&P Reviewed: Nov 01, 2018 Time H&P Reviewed: 07:04 Pre-Operative Diagnosis: RT DISTAL URETERAL STONE ROHINI GONZALEZ MD Nov 01, 2018 07:04
[2018-11-01] MEDS ORDERED: proPOfol 200 MG/20 ML (DIPRIVAN) VIAL IV ONE ×2 (07:06→07:40)
[2018-11-01] MEDS ORDERED: fentaNYL INJECTION 100 MCG/2 ML AMP ONE (07:06)
[2018-11-01] MEDS ORDERED: MIDAZOLAM 2 MG/2 ML (VERSED) VIAL ONE (07:06)
[2018-11-01] MEDS: LACTATED RINGERS 1,000 ML IV PRN ×2 (07:11→07:45)
--- NOTE | 2018-11-01 07:12 | Progress Note-Post Operative ---
Post-Operative Progess Note Surgeon (s)/Health Specialist (s) Surgeon ROHINI GONZALEZ MD Health Specialist: NONE Pre-Operative Diagnosis RT DISTAL URETERAL STONE Post-Operative Diagnosis SAME Procedure & Operative Findings Date of Procedure 11/01/18 Procedure Performed/Findings RT URETEROSCOPY WITH STONE LITHOTRIPSY Anesthesia Type GENERAL Estimated Blood Loss Estimated blood loss (mL): NONE Specimens/Packing Specimens Removed NONE Packing: NONE ROHINI GONZALEZ MD Nov 01, 2018 07:12
--- NOTE | 2018-11-01 07:14 | Discharge Inst-Urology ---
Discharge Inst-Urology Reconcile Patient Problems Problems Reviewed?: Yes Discharge Medications New, Converted, or Re-newed RX: RX on Chart Patient Instructions/Follow Up Plan Please make appointment to been seen in office in 4 weeks. Please have lab provide patient with stone risk profile kit and instructions to do as O.P Increase oral fluids for 48 hours and then as needed. Diet and Activity as tolerated. If questions or concerns contact your physician Or seek help at emergency department. ROHINI GONZALEZ MD Nov 01, 2018 07:14
[2018-11-01] MEDS ORDERED: LIDOCAINE PF 2% 5 ML (XYLOCAINE) VIAL ONE (07:40)
[2018-11-01] MEDS ORDERED: ONDANSETRON 4 MG/2 ML (SDV) Z0FRAN ONE ×2 (07:40)
[2018-11-01] MEDS ORDERED: SEVOFLURANE (ULTANE) 15 ML INHAL SOLN ONE (07:40)
[2018-11-01] MEDS ORDERED: KETOROLAC 30 MG/ML VIAL ONE (07:40)
[2018-11-01] MEDS ORDERED: DEXAMETHASONE 10 MG/ML (DECADRON) 1 ML VIAL ONE (07:40)
[2018-11-01] MEDS ORDERED: FUROSEMIDE 40 MG/4 ML INJ (LASIX) ONE (07:40)
--- NOTE | 2018-11-01 07:40 | Diagnostic Imaging Report ---
INDICATION: Right ureteral stone. COMPARISON: CT 10/27/2018, plain film 10/27/2018. FINDINGS: Questionable punctate calcifications are seen overlying the right sacrum. These are unchanged from the prior examination and likely correlate with the CT findings. Phleboliths are seen on the left. The bowel gas pattern is nondistended. There is mild constipation. IMPRESSION: Suspect unchanged distal right ureteral calculi. Dictated by: Dictated on workstation # [id number]
[2018-11-01] MEDS ORDERED: fentaNYL INJECTION 100 MCG/2 ML AMP IVP ONE (08:15)
[2018-11-01] MEDS ORDERED: PROMETHAZINE INJ 25 MG/ML (PHENERGAN) AMP IVP ONE (08:15)
[2018-11-01] MEDS ORDERED: TRAM50TA2 PO (08:38)
[2018-11-01] MEDS ORDERED: TAMS0.4C98 PO (08:38)
[2018-11-01] MEDS ORDERED: SULF1TAB35 PO (08:38)
--- NOTE | 2018-11-01 09:31 | Diagnostic Imaging Report ---
Indication: Lithotripsy. Comparison: None available. Findings and Impression: No fluoroscopic images were obtained during the procedure. A total of 15 seconds fluoroscopy time was utilized by Dr. Quiroz. Please see procedure report for details. Dictated by: Dictated on workstation # [id number]
--- NOTE | 2018-11-01 10:14 | OPERATIVE REPORT ---
DATE OF SERVICE: 11/01/2018 PREOPERATIVE DIAGNOSIS: Right distal ureteral stone. POSTOPERATIVE DIAGNOSIS: Right distal ureteral stone. OPERATION PERFORMED: Right ureteroscopy with stone lithotripsy. SURGEON: Isaac Gonzalez MD ANESTHESIA: General. COMPLICATIONS: None. DESCRIPTION OF PROCEDURE: Under satisfactory general anesthesia, the patient in lithotomy position, genitalia were prepped and draped in the usual sterile fashion. A 23-Kazakh cystoscope was introduced under vision. The anterior urethra was normal and the prostate was nonobstructing. The bladder neck was opened. The bladder was normal except a very sluggish efflux on the right side. Using the foroblique lens, I dilated the right ureteral orifice intramural portion to accommodate a 6.9 Kazakh semi-rigid ureteroscope, went up to the stone, visualized it. It was impacted in the ureter. I completely fragmented it with the lithoclast and disengaged it from the ureter, all the fragments fell distally with no fragments proximally. The ureteroscope was removed. Cystoscope was reinserted to empty the bladder. The patient tolerated the procedure and anesthesia well and was sent to recovery room in stable condition. We will give the patient a kit for stone risk profile provided with instruction from the lab today to do as an outpatient. Job ID: [id number] DocumentID: [id number] Dictated Date: 11/01/2018 07:56:37 Commissary Clerk Date: 11/01/2018 10:13:52 Dictated By: ISAAC GONZALEZ MD
--- NOTE | 2018-11-01 14:16 | Anesthesia-General Post-Op ---
General Patient Condition Mental Status/LOC: Same as Preop Cardiovascular: Satisfactory Nausea/Vomiting: Absent Respiratory: Satisfactory Pain: Controlled Complications: Absent Post Op Complications Complications None Follow Up Care/Instructions Patient Instructions None needed. Anesthesia/Patient Condition Patient Condition Patient was seen this morning after the procedure and he was doing well, no complaints, stable vital signs, no apparent adverse anesthesia problems. ASA RODRÍGUEZ DO Nov 01, 2018 14:16
== END 2018-11-01 10:40 | disposition home or self-care (01) ==
LOC: SDC 05:51
PROVIDERS: ATTEND Urology
DX: N20.1 Calculus of ureter (principal); Z11.2 Encounter for screening for other bacterial diseases; Z98.1 Arthrodesis status; F90.9 Attention-deficit hyperactivity disorder, unspecified type; M19.91 Primary osteoarthritis, unspecified site; M79.7 Fibromyalgia; G62.9 Polyneuropathy, unspecified; I10 Essential (primary) hypertension; K21.9 Gastro-esophageal reflux disease without esophagitis; M54.9 Dorsalgia, unspecified; F17.290 Nicotine dependence, other tobacco product, uncomplicated; Z79.899 Other long term (current) drug therapy
CPT/HCPCS: 74018; 87081

== ENCOUNTER 2018-11-18 12:06 | Outpatient (RCR) | payer BC ==
[~2018-11-18 12:06] MED LIST changes: +TAMS0.4C98 PO; +TRAM50TA2 PO
== END 2019-02-16 | disposition home or self-care (01) ==
LOC: LAB 12:06
PROVIDERS: ATTEND Urology
DX: N20.9 Urinary calculus, unspecified (principal)
CPT/HCPCS: 36415; 82140; 82340; 82507; 82570; 83735; 83945; 83986; 84105; 84133; 84300; 84392; 84560

== ENCOUNTER 2019-04-29 14:12 | Emergency (ER) | payer BC ==
[~2019-04-29] VITALS: Ht 182.8 cm; Wt 122.4 kg
[~2019-04-29 14:12] MED LIST changes: -TAMS0.4C98 PO; +TMSL.4C PO; -TRAM50TA2 PO; +TRM50T PO
[2019-04-29 14:32] LABS: BASOPHILS # (AUTO) 0.1 10^3/uL (0.0-0.1); BASOPHILS % (AUTO) 1 % (0-10); EOSINOPHILS # (AUTO) 0.1 10^3/uL (0.0-0.3); EOSINOPHILS % (AUTO) 1 % (0-10); HEMATOCRIT 44 % (40-54); LYMPHOCYTES # (AUTO) 2.2 X 10^3 (1.0-4.0); LYMPHOCYTES % (AUTO) 23 % (12-44); MEAN CORPUSCULAR HEMOGLOBIN 30 PG (25-34); MEAN CORPUSCULAR HGB CONC 34 G/DL (32-36); MEAN CORPUSCULAR VOLUME 86 FL (80-99); MONOCYTES # (AUTO) 0.9 X 10^3 (0.0-1.0); MONOCYTES % (AUTO) 10 % (0-12); NEUTROPHILS # (AUTO) 6.3 X 10^3 (1.8-7.8); NEUTROPHILS % (AUTO) 65 % (42-75); PLATELET COUNT 236 10^3/uL (130-400); RED CELL DISTRIBUTION WIDTH 13.6 % (10.0-14.5); WHITE BLOOD COUNT 9.6 10^3/uL (4.3-11.0)
[2019-04-29 14:43] LABS: INR 0.9 (0.8-1.4); PROTHROMBIN TIME PATIENT 12.6 SEC (12.2-14.7)
[2019-04-29 14:52] LABS: ALANINE AMINOTRANSFERASE 52 U/L (0-55); ALBUMIN 4.4 GM/DL (3.2-4.5); ALKALINE PHOSPHATASE 54 U/L (40-136); BILIRUBIN,TOTAL 0.4 MG/DL (0.1-1.0); BUN/CREATININE RATIO 15; CALCIUM 9.7 MG/DL (8.5-10.1); CARBON DIOXIDE 21 MMOL/L (21-32); CHLORIDE 103 MMOL/L (98-107); CREATININE SERUM 0.84 MG/DL (0.60-1.30); GFR ESTIMATED > 60; GLUCOSE 133 MG/DL (70-105); POTASSIUM 3.8 MMOL/L (3.6-5.0); SODIUM 138 MMOL/L (135-145); TOTAL PROTEIN 7.8 GM/DL (6.4-8.2)
--- NOTE | 2019-04-29 14:58 | Diagnostic Imaging Report ---
PA and lateral chest at 2:54 p.m. INDICATION: Chest pain. COMPARISON: There are no prior studies available for comparison. FINDINGS: The heart size is within normal limits. The lungs are clear. There is no evidence for failure, pneumonia or for a pleural effusion. The mediastinum is not widened. The osseous structures are intact. There is no orthopedic plate and screw fixation device overlying the lower cervical spine. IMPRESSION: There is no evidence for an acute cardiopulmonary abnormality. Dictated by: Dictated on workstation # [id number]
--- NOTE | 2019-04-29 15:16 | ED Chest Pain ---
General Chief Complaint: Chest Pain Stated Complaint: CHEST PAIN Nursing Triage Note: chest pain since wednesday on and off. states fever also started wednesday. denies cough, n/v Nursing Sepsis Screen: No Definite Risk Source: patient Exam Limitations: no limitations History of Present Illness Date Seen by Provider: Apr 29, 2019 Time Seen by Provider: 14:15 Initial Comments This 38-year-old gentleman presents to the emergency room with left upper chest pain that radiates to his left posterior shoulder. He does not identify any exacerbating or alleviating factors. The pain has been intermittent for about a week. The most recent bout of pain started approximately an hour and a half prior to arrival. He also reports having a fever 3 days ago. He denies any cough, hemoptysis, pain with inspiration or shortness of breath. He is afebrile at present. Allergies and Home Medications Allergies Coded Allergies: No Known Drug Allergies (Unverified , 10/31/18) Home Medications Acetaminophen 650 Mg Tablet.er, 650 MG PO TID, (Reported) Celecoxib 200 Mg Capsule, 200 MG PO BID, (Reported) Cholecalciferol (Vitamin D3) 2,000 Unit Capsule, 2,000 UNIT PO DAILY, (Reported) Dextroamphetamine/Amphetamine 30 Mg Tablet, 30 MG PO BID, (Reported) Hydrocodone/Acetaminophen 1 Each Tablet, 1 TAB PO Q4-6HR Prescribed by: BROOKE MUKHERJEE on 10/27/18 152 Ketorolac Tromethamine 10 Mg Tablet, 10 MG PO Q8H PRN for PAIN-MODERATE TO SEVERE Prescribed by: BROOKE MUKHERJEE on 10/27/18 152 Losartan Potassium 50 Mg Tablet, 50 MG PO DAILY, (Reported) Metronidazole/Skin Cleansr #23 1 Each Kit.cl.gel, 1 EACH TP BID, (Reported) Pregabalin 75 Mg Capsule, 75 MG PO BID, (Reported) Sulfamethoxazole/Trimethoprim 1 Each Tablet, 1 EACH PO BID Prescribed by: BROOKE MUKHERJEE on 10/27/18 152 Sulfamethoxazole/Trimethoprim 1 Each Tablet, 1 EACH PO BID Prescribed by: KATELYN ROMANO on 11/01/1838 Tamsulosin HCl 0.4 Mg Cap, 0.4 MG PO DAILY Prescribed by: KATELYN ROMANO on 11/01/18837 Tramadol HCl 50 Mg Tablet, 1-2 MG PO Q4H Prescribed by: KATELYN ROMANO on 11/01/18 0838 Triamcinolone Acet 15 Gm Cr, 15 GM TP BID, (Reported) Patient Home Medication List Home Medication List Reviewed: Yes Review of Systems Review of Systems Constitutional: see HPI EENTM: No Symptoms Reported Respiratory: No Symptoms Reported Cardiovascular: See HPI Gastrointestinal: No Symptoms Reported Genitourinary: No Symptoms Reported Musculoskeletal: see HPI Skin: no symptoms reported Psychiatric/Neurological: Other (tremor of the left hand) Endocrine: No Symptoms Reported Hematologic/Lymphatic: No Symptoms Reported Past Phllzzx-Rkfxjx-Rztvcg Hx Past Med/Social Hx: Reviewed Nursing Past Med/Soc Hx Patient Social History Type Used: Smokeless Tobacco 2nd Hand Smoke Exposure: No Recent Foreign Travel: No Contact w/Someone Who Travel: No Recent Infectious Disease Expo: No Recent Hopitalizations: No Physical Abuse: No Sexual Abuse: No Mistreated: No Immunizations Up To Date Tetanus Booster (TDap): Unknown Date of Influenza Vaccine: Jan 10, 2018 Seasonal Allergies Seasonal Allergies: No Past Medical History Surgeries: Yes (arthroscopic surgery left knee x2, cervical spine surgery, ESWL) Orthopedic, Renal Respiratory: No Cardiac: Yes Hypertension Neurological: No Reproductive Disorders: No Sexually Transmitted Disease: No HIV/AIDS: No Genitourinary: Yes Kidney Stones, UTI-Chronic Gastrointestinal: Yes (acute gastroenteritis) Musculoskeletal: Yes (CERVICAL SX c5-c6 fusion, CHRONIC PAIN) Arthritis, Fibromyalgia Endocrine: No HEENT: No (GLASSES/CONTACTS) Loss of Vision: Denies Hearing Impairment: Denies Cancer: No Psychosocial: No Integumentary: Yes Eczema Blood Disorders: No Adverse Reaction/Blood Tranf: No (N/A) Family Medical History No Pertinent Family Hx Physical Exam Vital Signs Vital Signs - First Documented 04/29/19 14:20 Temp 37.5 Pulse 96 Resp 18 B/P (MAP) 137/108 (118) Pulse Ox 99 O2 Delivery Room Air Capillary Refill : Less Than 3 Seconds Height, Weight, BMI Height: 6'0.00" Weight: 260lbs. 0.0oz. 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 Norm as Tested Skin: Normal Color, Warm/Dry Progress/Results/Core Measures Results/Orders Lab Results Laboratory Tests Test 04/29/19 14:20 04/29/19 17:05 04/29/19 17:32 Range/Units White Blood Count 9.6 4.3-11.0 10^3/uL Red Blood Count 5.06 4.35-5.85 10^6/uL Hemoglobin 15.0 13.3-17.7 G/DL Hematocrit 44 40-54 % Mean Corpuscular Volume 86 80-99 FL Mean Corpuscular Hemoglobin 30 25-34 PG Mean Corpuscular Hemoglobin Concent 34 32-36 G/DL Red Cell Distribution Width 13.6 10.0-14.5 % Platelet Count 236 130-400 10^3/uL Mean Platelet Volume 10.0 7.4-10.4 FL Neutrophils (%) (Auto) 65 42-75 % Lymphocytes (%) (Auto) 23 12-44 % Monocytes (%) (Auto) 10 0-12 % Eosinophils (%) (Auto) 1 0-10 % Basophils (%) (Auto) 1 0-10 % Neutrophils # (Auto) 6.3 1.8-7.8 X 10^3 Lymphocytes # (Auto) 2.2 1.0-4.0 X 10^3 Monocytes # (Auto) 0.9 0.0-1.0 X 10^3 Eosinophils # (Auto) 0.1 0.0-0.3 10^3/uL Basophils # (Auto) 0.1 0.0-0.1 10^3/uL Prothrombin Time 12.6 12.2-14.7 SEC INR Comment 0.9 0.8-1.4 Activated Partial Thromboplast Time 31 24-35 SEC Sodium Level 138 135-145 MMOL/L Potassium Level 3.8 3.6-5.0 MMOL/L Chloride Level 103 98-107 MMOL/L Carbon Dioxide Level 21 21-32 MMOL/L Anion Gap 14 5-14 MMOL/L Blood Urea Nitrogen 13 7-18 MG/DL Creatinine 0.84 0.60-1.30 MG/DL Estimat Glomerular Filtration Rate > 60 BUN/Creatinine Ratio 15 Glucose Level 133 H 70-105 MG/DL Calcium Level 9.7 8.5-10.1 MG/DL Corrected Calcium 9.4 8.5-10.1 MG/DL Magnesium Level 2.0 1.6-2.4 MG/DL Total Bilirubin 0.4 0.1-1.0 MG/DL Aspartate Amino Transf (AST/SGOT) 26 5-34 U/L Alanine Aminotransferase (ALT/SGPT) 52 0-55 U/L Alkaline Phosphatase 54 40-136 U/L Myoglobin 27.7 10.0-92.0 NG/ML Troponin I < 0.028 < 0.028 <0.028 NG/ML Total Protein 7.8 6.4-8.2 GM/DL Albumin 4.4 3.2-4.5 GM/DL Urine Color YELLOW Urine Clarity TURBID Urine pH 5.5 5-9 Urine Specific [place] >=1.030 1.016-1.022 Urine Protein 1+ H NEGATIVE Urine Glucose (UA) NEGATIVE NEGATIVE Urine Ketones TRACE H NEGATIVE Urine Nitrite POSITIVE NEGATIVE Urine Bilirubin NEGATIVE NEGATIVE Urine Urobilinogen 0.2 < = 1.0 MG/DL Urine Leukocyte Esterase 2+ H NEGATIVE Urine RBC (Auto) 2+ H NEGATIVE Urine RBC NONE /HPF Urine WBC TNTC H /HPF Urine Crystals NONE /LPF Urine Bacteria MODERATE H /HPF Urine Casts NONE /LPF Urine Mucus NEGATIVE /LPF Urine Culture Indicated YES Micro Results Microbiology 04/29/19 Influenza Types A,B Antigen ([facility]) - Final, Complete My Orders Orders - JUANCARLOS FIERRO MD Cbc With Automated Diff (04/29/19 14:14) Magnesium (04/29/19 14:14) Ekg Tracing (04/29/19 14:14) Comprehensive Metabolic Panel (04/29/19 14:14) Myoglobin Serum (04/29/19 14:14) Protime With Inr (04/29/19 14:14) Partial Thromboplastin Time (04/29/19 14:14) O2 (04/29/19 14:14) Monitor-Rhythm Ecg Trace Only (04/29/19 14:14) Lipid Panel (04/30/19 06:00) Ed Iv/Invasive Line Start (04/29/19 14:14) Chest Pa/Lat (2 View) (04/29/19 14:26) Troponin I (04/29/19 14:20) Influenza A And B Antigens (04/29/19 15:17) Aspirin Chewable Tablet (Baby Aspirin Ch (04/29/19 15:30) Ketorolac Injection (Toradol Injection) (04/29/19 15:30) Ns Iv 1000 Ml (Sodium Chloride 0.9%) (04/29/19 15:23) Ua Culture If Indicated (04/29/19 15:23) Troponin I (04/29/19 16:58) Urine Culture (04/29/19 17:32) Ceftriaxone For Iv Use (Rocephin For I (04/29/19 18:15) Medications Given in ED Current Medications Medications Dose Ordered Sig/Javier Route Start Time Stop Time Status Last Admin Dose Admin Aspirin 324 mg ONCE ONCE PO 04/29/19 15:30 04/29/19 15:31 DC 04/29/19 15:38 324 MG Ketorolac Tromethamine 30 mg ONCE ONCE IVP 04/29/19 15:30 04/29/19 15:31 DC 04/29/19 15:37 30 MG Sodium Chloride 1,000 ml @ 0 mls/hr Q0M ONCE IV 04/29/19 15:23 04/29/19 15:25 DC 04/29/19 15:38 0 MLS/HR Vital Signs/I&O 04/29/19 14:20 Temp 37.5 Pulse 96 Resp 18 B/P (MAP) 137/108 (118) Pulse Ox 99 O2 Delivery Room Air Blood Pressure Mean: 118 Progress Progress Note #1: Time: 15:25 Progress Note Initial workup was unremarkable. Influenza screen is pending. Patient still has a chest pain rated as 4/10. This seems to be more of an intermittent throbbing pain that is atypical in nature. We will try some Toradol to treat the pain. Patient is also going to receive aspirin. He additionally reiterates that he has had some dark urine recently and this afternoon has been unable to urinate. A liter of IV normal saline has been ordered. We will check a urine when he is able to urinate. An additional troponin has been ordered for 4 hours from onset of pain. Progress Note #2: Time: 18:15 Progress Note Toradol resolved his chest pain. Repeat troponin was negative. A liter of IV fluid was infused and he was able to produce a urine specimen. UA was grossly positive for infection. A dose of Rocephin was administered. Patient denied any risk factors for STI or other symptoms such as purulent penile drainage. See discharge instructions for discussion. Initial ECG Impression Date: Apr 29, 2019 Initial ECG Impression Time: 14:19 Initial ECG Rate: 82 Initial ECG Rhythm: Normal Sinus Initial ECG Intervals: Normal Initial ECG Impression: Normal Comment Normal sinus rhythm with no ST elevation or depression. No abnormal intervals or axis deviation. Diagnostic Imaging Diagonstic Imaging: Xray Plain Films/CT/US/NM/MRI: chest Comments Chest x-ray viewed by me and report reviewed. See report below: NAME: ANA BORGES [facility] REC#: [id number] PT STATUS: REG ER : 1980 PHYSICIAN: JUANCARLOS FIERRO MD ADMIT DATE: 04/29/19/ER Draft Date of Exam:04/29/19 CHEST PA/LAT (2 VIEW) PA and lateral chest at 2:54 p.m. INDICATION: Chest pain. COMPARISON: There are no prior studies available for comparison. FINDINGS: The heart size is within normal limits. The lungs are clear. There is no evidence for failure, pneumonia or for a pleural effusion. The mediastinum is not widened. The osseous structures are intact. There is no orthopedic plate and screw fixation device overlying the lower cervical spine. IMPRESSION: There is no evidence for an acute cardiopulmonary abnormality. Dictated on workstation # [id number] Dict: 04/29/19 1455 Trans: 04/29/19 1457 [facility] [id number] Interpreted by: KAREN BORJA MD Departure Impression Primary Impression: Atypical chest pain Additional Impression: Urinary tract infection Qualified Codes: N39.0 - Urinary tract infection, site not specified Disposition: 01 HOME, SELF-CARE Condition: Improved Departure-Patient Inst. Decision time for Depature: 18:12 Referrals: ARSEN RUCKER MD (PCP/Family) Primary Care Physician Patient Instructions: Chest Pain That Is Not Caused by the Heart (DC), Urinary Tract Infections in Adults Add. Discharge Instructions: Drink plenty of clear liquids. Your urine should be light yellow to clearish in color if you are hydrated well enough. Complete your antibiotics as prescribed. Follow-up with your primary care provider on Wednesday or Wednesday to review urine culture results. If you are unable to follow-up with a primary care provider, you may contact the emergency room for culture results Wednesday or after. For pain you may take ibuprofen up to 600 mg every 6 hours as needed and/or Tylenol (acetaminophen) up to 1000 mg every 6 hours. Return to the emergency room if you have worsening symptoms while you are awaiting follow-up. All discharge instructions reviewed with patient and/or family. Voiced understanding. Scripts Cephalexin (Keflex) 500 Mg Capsule 500 MG PO TID, #20 CAP Prov: JUANCARLOS FIERRO MD 04/29/19 JUANCARLOS FIERRO MD Apr 29, 2019 15:16
[2019-04-29] MEDS ORDERED: NS IV 1000 ML 1,000 ML IV ONE (15:23)
[2019-04-29] MEDS ORDERED: KETOROLAC 30 MG/ML VIAL IVP ONE (15:30)
[2019-04-29] MEDS ORDERED: ASPIRIN 81 MG CHEW (CHILDREN'S ASA) PO ONE (15:30)
[2019-04-29 17:37] LABS: BILIRUBIN,URINE NEGATIVE (NEGATIVE); CLARITY,URINE TURBID; COLOR,URINE YELLOW; GLUCOSE, URINE (UA) NEGATIVE (NEGATIVE); KETONES,URINE TRACE (NEGATIVE); LEUKOCYTE ESTERASE ,URINE 2+ (NEGATIVE); NITRITE,URINE POSITIVE (NEGATIVE); PH,URINE 5.5 (5-9); PROTEIN,URINE 1+ (NEGATIVE)
[2019-04-29 18:00] LABS: BACTERIA,URINE MODERATE /HPF; WBC,URINE TNTC /HPF
[2019-04-29] MEDS ORDERED: CEPH-507 PO (18:13)
[2019-04-29] MEDS ORDERED: cefTRIAXone FOR IV USE 1,000 MG in WATER (STERILE) FOR INJECTION 10 ML IV ONE (18:15)
[2019-04-29 18:29] VITALS: BP 125/96
== END 2019-04-29 18:29 | disposition home or self-care (01) ==
LOC: EDUNIT# 14:12 → ER 14:13
DX: R07.89 Other chest pain (principal); N39.0 Urinary tract infection, site not specified; I10 Essential (primary) hypertension; Z87.442 Personal history of urinary calculi
CPT/HCPCS: 36415; 71046; 80053; 81000; 83735; 83874; 84484; 85025; 85610; 85730; 87077; 87088; 87186; 87804; 93005; 93041

== ENCOUNTER 2020-06-08 07:34 | Emergency (ER) | payer OTHER, BC ==
[~2020-06-08] VITALS: Ht 182 cm; Wt 109.0 kg
[~2020-06-08 07:34] MED LIST changes: +CEPH-507 PO
[2020-06-08] MEDS ORDERED: ROSU10TA28 (07:54)
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
--- NOTE | 2020-06-08 08:13 | Diagnostic Imaging Report ---
INDICATION: hand pain TECHNIQUE: Three views of the right hand. CORRELATION STUDY: None FINDINGS: There is normal alignment and appearance of the osseous structures of the hand. The joint spaces are maintained. Mildly prominent osteophyte at the distal interphalangeal joint little finger. There is no acute fracture. Soft tissues are unremarkable. IMPRESSION: 1. Negative for acute bony abnormality of the hand. Dictated by: Dictated on workstation # [id number]
[2020-06-08 08:46] VITALS: BP 146/98
== END 2020-06-08 08:45 | disposition home or self-care (01) ==
LOC: EDUNIT# 07:34 → ER 07:36
DX: S63.601A Unspecified sprain of right thumb, initial encounter (principal); S60.410A Abrasion of right index finger, initial encounter; G89.29 Other chronic pain; Y04.0XXA Assault by unarmed brawl or fight, initial encounter
CPT/HCPCS: 73130

== ENCOUNTER → 2020-07-01 | Outpatient (REF) | payer BC, OTHER ==
[~2020-07-01] MED LIST changes: +ROSU10TA28
== END | disposition home or self-care (01) ==
LOC: OCC 14:25 → RAD 14:25
PROVIDERS: ATTEND Nurse Practitioner Family

== ENCOUNTER → 2020-08-30 | Outpatient (CLI) | payer OTHER | LOC: LABNPT 06:30 | PROVIDERS: ATTEND Emergency Medicine | DX: Z01.812 Encounter for preprocedural laboratory examination (principal); Z20.822 Contact with and (suspected) exposure to COVID-19 | CPT/HCPCS: 87635 ==

== ENCOUNTER → 2020-12-10 | Outpatient (CLI) | payer OTHER ==
[~2020-12-10] MED LIST changes: -SULF1TAB35 PO; +SULF1TAB38 PO
--- NOTE | 2020-12-10 14:13 | Diagnostic Imaging Report ---
Indication: Cellulitis, pain COMPARISON: 05/20/2018 TECHNIQUE: 3 radiographs right foot dated 12/10/2020 FINDINGS: Comminuted fracturing involving the base of the 2nd digit proximal phalanx is identified with intra-articular extension to the 2nd MTP joint. Mild periosteal reaction is noted within the region. Approximately 2 mm articular gap is noted. No additional fracture or dislocation. Small posterior and plantar calcaneal enthesophytes have developed. Mild degenerative changes associated with the 1st MTP joint have developed, particularly medially. No suspicious radiopaque foreign body. IMPRESSION: Recent acute to subacute fracture involving the 2nd digit proximal phalanx with intra-articular extension to the 2nd MTP joint. Mild scattered degenerative changes. Should there remains clinical concern for underlying osteomyelitis, then follow-up radiographs in 10-14 days would be recommended. Dictated by: Dictated on workstation # [id number]
== END ==
LOC: RAD 10:53
DX: S92.911A Unspecified fracture of right toe(s), initial encounter for closed fracture (principal); M19.071 Primary osteoarthritis, right ankle and foot; L03.031 Cellulitis of right toe
CPT/HCPCS: 73630

== ENCOUNTER 2021-06-08 15:11 | Emergency (ER) | payer BC ==
[~2021-06-08] VITALS: Ht 180 cm; Wt 109.0 kg
[2021-06-08] MEDS ORDERED: CLINDAMYCIN 600 MG/4ML (CLEOCIN) VIAL IV STA (15:35)
--- NOTE | 2021-06-08 15:45 | ED Lower Extremity ---
General Chief Complaint: Lower Extremity Stated Complaint: LEFT BIG TOE INFECTION Nursing Triage Note: AMB TO ROOM REPORTS 1 YEAR AGO HAS FX IN R 1ST TOE HAS BEEN HAVING PROBLEMS SINCE . WAS ON ANTIBIOTICS 2 WEEKS AGO FOR CELLULITIS IN R 1ST TOE. WEDNESDAY WAS RUNNING AND AND SHOE RUBBED AGAINST TOE. HAS HAD PAIN AND SWELLING SINCE. ABRASION ON TOP OF R 1ST TOE. TOE SWOLLEN AND AND PAINFUL. Source: patient Exam Limitations: no limitations History of Present Illness Date Seen by Provider: Jun 08, 2021 Time Seen by Provider: 15:42 Initial Comments Patient is a 40-year-old male presents ED with right big toe swelling and redness. Patient is a type II diabetic dsi-baadejz-lzehtepae. Patient states he was running woke up the next morning had swelling and redness to his right big toe. Started having pain to his right calf concern for secondary redness radiating up his right leg on Wednesday. The redness has improved. Not currently on antibiotics. He states he fractured his right big toe last year and has had issues with with infection to his right big toe. He reports some purulent drainage from the right big toe. last time he was on antibiotics was 2 weeks ago. States antibiotics typically help when his toe gets infected. Denies of any fever, chills, body aches, headache, dizziness. Patient went to [facility] and was recommended come to ED for further evaluation. Allergies and Home Medications Allergies Coded Allergies: No Known Drug Allergies (Unverified , 10/31/18) Patient Home Medication List Home Medication List Reviewed: Yes Acetaminophen (Tylenol Arthritis) 650 Mg Tablet.er, 650 MG PO TID, (Reported) Entered as Reported by: CHAS CAICEDO on 10/31/18 1222 Cholecalciferol (Vitamin D3) (Vitamin D3) 2,000 Unit Capsule, 2,000 UNIT PO DAILY, (Reported) Entered as Reported by: CHAS CAICEDO on 10/31/18 1222 Clindamycin HCl (Clindamycin HCl) 300 Mg Capsule, 300 MG PO QID Prescribed by: RACHNA KAM on 06/08/21 1705 Dextroamphetamine/Amphetamine (Adderall 30 mg Tablet) 30 Mg Tablet, 30 MG PO BID, (Reported) Entered as Reported by: CHAS CAICEDO on 10/31/18 1222 Hydrocodone/Acetaminophen (Hydrocodone/Acetaminophen 5 MG/325 MG TAB) 1 Each Tablet, 1 TAB PO Q4-6HR Prescribed by: BROOKE MUKHERJEE on 10/27/18 1523 Rosuvastatin Calcium (Rosuvastatin Calcium) 10 Mg Tablet, (Reported) Entered as Reported by: DANA HONG on 06/08/20 0754 Review of Systems Constitutional: No chills, No diaphoresis, No malaise, No weakness EENTM: No blurred vision, No mouth pain, No mouth swelling, No throat pain, No throat swelling Respiratory: No cough, No dyspnea on exertion Gastrointestinal: No abdominal pain, No diarrhea, No nausea, No vomiting Genitourinary: No decreased output, No discharge Musculoskeletal: No no symptoms reported, No back pain; joint pain; No muscle pain, No muscle stiffness Skin: No change in color, No change in hair/nails All Other Systems Reviewed Negative Unless Noted: Yes Past Etkvkyg-Udutxf-Beiadz Hx Patient Social History Tobacco Use?: No Substance use?: No Alcohol Use?: Yes Alcohol Frequency: Rarely Immunizations Up To Date Tetanus Booster (TDap): Unknown First/Initial COVID19 Vaccinat: YES Second COVID19 Vaccination Tres: YES Third COVID19 Vaccination Date: ? COVID19 Vaccine Machine Grinder: [facility] Seasonal Allergies Seasonal Allergies: No Past Medical History Surgeries: Yes (arthroscopic surgery left knee x2, cervical spine surgery, ESWL) Orthopedic, Renal Respiratory: No Cardiac: Yes Hypertension Neurological: No Reproductive Disorders: No Sexually Transmitted Disease: No HIV/AIDS: No Genitourinary: Yes Kidney Stones, UTI-Chronic Gastrointestinal: Yes (acute gastroenteritis) Musculoskeletal: Yes (CERVICAL SX c5-c6 fusion, CHRONIC PAIN) Arthritis, Fibromyalgia Endocrine: No HEENT: No (GLASSES/CONTACTS) Loss of Vision: Denies Hearing Impairment: Denies Cancer: No Psychosocial: No Integumentary: Yes Eczema Blood Disorders: No Adverse Reaction/Blood Tranf: No (N/A) Family Medical History No Pertinent Family Hx Physical Exam Vital Signs Vital Signs - First Documented 06/08/21 15:21 Temp 35.7 Pulse 77 Resp 18 B/P (MAP) 147/93 (111) Pulse Ox 98 O2 Delivery Room Air Capillary Refill : Height, Weight, BMI Height: 6'0.00" Weight: 260lbs. 0.0oz. [id number]; 33.00 BMI Method:Actual General Appearance: WD/WN, no apparent distress HEENT: PERRL/EOMI, normal ENT inspection, TMs normal, pharynx normal Neck: non-tender, full range of motion, supple, normal inspection Cardiovascular: regular rate, rhythm, no edema, no gallop, no JVD Respiratory: chest non-tender, lungs clear, normal breath sounds, no respiratory distress, no accessory muscle use Gastrointestinal: normal bowel sounds, non tender, soft, no organomegaly Feet: right foot pain, right foot swelling Neurologic/Tendon: normal sensation Skin: other (Mild purulent drainage from the right dorsum big toe. Ruptured blister. Localized erythema and swelling. Mild localized erythema without significant streaking to the right foot) Procedures/Interventions I&D : Site: right dorsum big toe Blade Size: 11 I & D Procedure: betadine prep, sterile drapes applied, sterile dressing applied Progress 3 ml of 1% lidocaine was used. Made a small incision with 11 inch blade. Small amount of purulent drainage. Irrigated with 50 ml of normal saline. Allow the area to be opened and to drain. surrounding induration. Patient tolerated procedure well. Progress/Results/Core Measures Results/Orders Lab Results Laboratory Tests Test 06/08/21 15:45 Range/Units White Blood Count 7.8 4.3-11.0 10^3/uL Red Blood Count 5.07 4.30-5.52 10^6/uL Hemoglobin 15.0 13.3-17.7 g/dL Hematocrit 45 40-54 % Mean Corpuscular Volume 89 80-99 fL Mean Corpuscular Hemoglobin 30 25-34 pg Mean Corpuscular Hemoglobin Concent 33 32-36 g/dL Red Cell Distribution Width 13.3 10.0-14.5 % Platelet Count 221 130-400 10^3/uL Mean Platelet Volume 10.3 9.0-12.2 fL Immature Granulocyte % (Auto) 0 % Neutrophils (%) (Auto) 53 42-75 % Lymphocytes (%) (Auto) 36 12-44 % Monocytes (%) (Auto) 10 0-12 % Eosinophils (%) (Auto) 1 0-10 % Basophils (%) (Auto) 1 0-10 % Neutrophils # (Auto) 4.1 1.8-7.8 10^3/uL Lymphocytes # (Auto) 2.8 1.0-4.0 10^3/uL Monocytes # (Auto) 0.8 0.0-1.0 10^3/uL Eosinophils # (Auto) 0.1 0.0-0.3 10^3/uL Basophils # (Auto) 0.1 0.0-0.1 10^3/uL Immature Granulocyte # (Auto) 0.0 0.0-0.1 10^3/uL Erythrocyte Sedimentation Rate 21 H 0-15 MM/HR Sodium Level 141 135-145 MMOL/L Potassium Level 4.0 3.6-5.0 MMOL/L Chloride Level 105 98-107 MMOL/L Carbon Dioxide Level 23 21-32 MMOL/L Anion Gap 13 5-14 MMOL/L Blood Urea Nitrogen 10 7-18 MG/DL Creatinine 0.78 0.60-1.30 MG/DL Estimat Glomerular Filtration Rate 117 BUN/Creatinine Ratio 13 Glucose Level 138 H 70-105 MG/DL Calcium Level 9.7 8.5-10.1 MG/DL Corrected Calcium 9.4 8.5-10.1 MG/DL Total Bilirubin 0.7 0.1-1.0 MG/DL Aspartate Amino Transf (AST/SGOT) 17 5-34 U/L Alanine Aminotransferase (ALT/SGPT) 30 0-55 U/L Alkaline Phosphatase 56 40-136 U/L C-Reactive Protein High Sensitivity 7.32 H 0.00-0.50 MG/DL Total Protein 7.9 6.4-8.2 GM/DL Albumin 4.4 3.2-4.5 GM/DL My Orders Orders - HEATH BHATIA Cbc With Automated Diff (06/08/21 15:32) Comprehensive Metabolic Panel (06/08/21 15:32) Hs C Reactive Protein (06/08/21 15:32) Foot, Right, 3 View (06/08/21 15:32) Clindamycin Injection (Cleocin Injection (06/08/21 15:35) D5w 50 Ml Ivpb Solution (Dextrose 5% Sonja (06/08/21 15:53) Erythrocyte Sedimentation Rate (06/08/21 16:15) Medications Given in ED Current Medications Medications Dose Ordered Sig/Javier Route Start Time Stop Time Status Last Admin Dose Admin Dextrose/Water 50 ml @ ud STK-MED ONCE IV 3/6/22 15:53 06/08/21 15:55 DC 06/08/21 16:04 50 MLS/HR Vital Signs/I&O 06/08/21 06/08/21 15:21 17:28 Temp 35.7 Pulse 77 57 Resp 18 18 B/P (MAP) 147/93 (111) 132/79 Pulse Ox 98 98 O2 Delivery Room Air Room Air Blood Pressure Mean: 111 Departure Communication (Admissions) Patient with a previous fracture to his right big toe 1 year ago. He states the fracture has been healed but noted to have a blister since the fracture on top of his toe. Wears boots daily which seemed to exacerbate it. Went running on noted the next day increased redness and swelling. On exam purulent drainage noted. Made a small superficial incision with lidocaine three mls and had small amount of purulent drainage. Induration noted with swelling. Very localized erythema. No significant streaking noted. X-ray was negative for fracture. No cortical destruction. He states he has had this ongoing blister that has gradually progressively worsen and it seems to be exacerbated with his boots. Due to the length of symptoms him being diabetic cannot rule out obvious osteomyelitis. His white blood count normal. ESR slightly elevated and CRP as well. Discussed with patient due to the continuous lesion with intermittent pain likely need to rule out osteomyelitis. Patient does not want to be admitted. Did order outpatient MRI for tomorrow. Patient does need to follow- up with podiatry. He states he did see orthopedic and they werent concern for osteomyelitis with x-ray. He has not had an MRI. Patient was given a IV dose of clindamycin here. Patient vital signs stable. Does not appear septic or toxic. I was not able to obtain blood cultures. Will discharge with clindamycin. If symptoms worsen such as redness, swelling or developing erythematous streaking he will need to return back to ED. patient needs to follow-up with podiatry for this ongoing concern Impression Primary Impression: Cellulitis Disposition: HOME, SELF-CARE Condition: Stable Departure-Patient Inst. Decision time for Depature: 17:05 Referrals: LAURENT ROLON MD (PCP/Family) Primary Care Physician JEMAL WEBER DPRusty Patient Instructions: Cellulitis (Skin Infection), Adult ED Scripts Clindamycin HCl (Clindamycin HCl) 300 Mg Capsule 300 MG PO QID for 7 Days, #28 CAP Prov: HEATH BHATIA 06/08/21 Work/School Note: Work Release Form Date Seen in the Emergency Department: Jun 08, 2021 Return to Work: Jun 11, 2021 HEATH BHATIA Jun 08, 2021 15:45
[2021-06-08 15:51] LABS: BASOPHILS # (AUTO) 0.1 10^3/uL (0.0-0.1); BASOPHILS % (AUTO) 1 % (0-10); EOSINOPHILS # (AUTO) 0.1 10^3/uL (0.0-0.3); EOSINOPHILS % (AUTO) 1 % (0-10); HEMATOCRIT 45 % (40-54); LYMPHOCYTES # (AUTO) 2.8 10^3/uL (1.0-4.0); LYMPHOCYTES % (AUTO) 36 % (12-44); MEAN CORPUSCULAR HEMOGLOBIN 30 pg (25-34); MEAN CORPUSCULAR HGB CONC 33 g/dL (32-36); MEAN CORPUSCULAR VOLUME 89 fL (80-99); MEAN PLATELET VOLUME 10.3 fL (9.0-12.2); MONOCYTES # (AUTO) 0.8 10^3/uL (0.0-1.0); MONOCYTES % (AUTO) 10 % (0-12); NEUTROPHILS # (AUTO) 4.1 10^3/uL (1.8-7.8); NEUTROPHILS % (AUTO) 53 % (42-75); PLATELET COUNT 221 10^3/uL (130-400); WHITE BLOOD COUNT 7.8 10^3/uL (4.3-11.0)
[2021-06-08] MEDS ORDERED: D5W 50 ML IVPB SOLUTION 50 ML IV ONE (15:53)
[2021-06-08 16:01] LABS: ALBUMIN 4.4 GM/DL (3.2-4.5)
[2021-06-08 16:02] LABS: CALCIUM 9.7 MG/DL (8.5-10.1)
[2021-06-08 16:03] LABS: TOTAL PROTEIN 7.9 GM/DL (6.4-8.2)
[2021-06-08 16:05] LABS: BILIRUBIN,TOTAL 0.7 MG/DL (0.1-1.0)
--- NOTE | 2021-06-08 16:06 | Diagnostic Imaging Report ---
INDICATION: Right foot injury. COMPARISON: 12/10/2020. EXAMINATION: Three views of the right foot. FINDINGS: Fracture deformity involving the proximal phalanx of the 2nd digit which is likely chronic. There is no acute fracture or dislocation. There is no radiographic evidence of osteomyelitis or foreign body. IMPRESSION: Chronic appearing fracture of the proximal aspect of the proximal phalanx 2nd digit. If there is clinical concern for osteomyelitis MRI would be suggested. Dictated by: Dictated on workstation # [id number]
[2021-06-08 16:07] LABS: CREATININE SERUM 0.78 MG/DL (0.60-1.30)
[2021-06-08] MEDS ORDERED: CLIN-144 PO (17:05)
[2021-06-08 17:28] VITALS: BP 132/79
== END 2021-06-08 17:31 | disposition home or self-care (01) ==
LOC: EDUNIT# 15:11 → ER 15:15
DX: L03.115 Cellulitis of right lower limb (principal); E11.9 Type 2 diabetes mellitus without complications
CPT/HCPCS: 36415; 73630; 80053; 85025; 85652; 86141

== ENCOUNTER → 2021-06-25 | Outpatient (CLI) | payer BC ==
[~2021-06-25] MED LIST changes: +CLIN-144 PO
--- NOTE | 2021-06-25 16:54 | Diagnostic Imaging Report ---
PROCEDURE: MRI right lower extremity without contrast. TECHNIQUE: Multiplanar, multisequence [id number] MRI of the right lower extremity was accomplished. INDICATION: Ulcer on the dorsal aspect of the great toe. Swelling. COMPARISON: Radiographs from 06/08/2021. FINDINGS: Skin marker was placed on the dorsal aspect of the great toe overlying the proximal phalanx. There is no T2 hyperintense bone marrow edema or T1 hypointense marrow replacement to indicate osteomyelitis of the underlying first phalanges. There are no sites of abnormal marrow changes within the visualized forefoot that would indicate osteomyelitis. There is a small amount of T2 hyperintense signal along the base of the second metatarsal, which is likely degenerative in nature. Chronic deformity at the base of the second proximal phalanx. T2 hyperintense signal and mild fatty infiltration within the intrinsic musculature of foot is frequently seen with denervation injury. This is often seen in the setting of diabetes, although this is not a specific finding for diabetes. No plantar fasciitis. No intermetatarsal bursitis. IMPRESSION: 1. No MRI features of osteomyelitis within the right forefoot. 2. No fluid collection that would suggest a drainable abscess. Dictated by: Dictated on workstation # [id number]
== END ==
PROVIDERS: ATTEND Physician Assistant
DX: L97.519 Non-pressure chronic ulcer of other part of right foot with unspecified severity (principal)

== ENCOUNTER → 2021-10-21 | Outpatient (CLI) | payer BC | LOC: WOUNDCARE 09:41 | PROVIDERS: ATTEND Family Medicine | DX: E11.621 Type 2 diabetes mellitus with foot ulcer (principal); L97.512 Non-pressure chronic ulcer of other part of right foot with fat layer exposed; M20.41 Other hammer toe(s) (acquired), right foot; L03.115 Cellulitis of right lower limb; E11.610 Type 2 diabetes mellitus with diabetic neuropathic arthropathy; F15.90 Other stimulant use, unspecified, uncomplicated; E66.09 Other obesity due to excess calories; Z68.33 Body mass index [BMI] 33.0-33.9, adult | CPT/HCPCS: 11042; A6197; G0463 ==

== ENCOUNTER → 2021-10-28 | Outpatient (CLI) | payer BC | LOC: WOUNDCARE 08:51 | PROVIDERS: ATTEND Family Medicine | DX: E11.621 Type 2 diabetes mellitus with foot ulcer (principal); E11.52 Type 2 diabetes mellitus with diabetic peripheral angiopathy with gangrene; I96 Gangrene, not elsewhere classified; L97.512 Non-pressure chronic ulcer of other part of right foot with fat layer exposed; M20.41 Other hammer toe(s) (acquired), right foot; L03.115 Cellulitis of right lower limb; E11.610 Type 2 diabetes mellitus with diabetic neuropathic arthropathy; E66.09 Other obesity due to excess calories; F15.90 Other stimulant use, unspecified, uncomplicated; Z68.33 Body mass index [BMI] 33.0-33.9, adult | CPT/HCPCS: 11042; G0463 ==

== ENCOUNTER → 2021-11-03 | Outpatient (CLI) | payer BC | LOC: WOUNDCARE 14:23 | PROVIDERS: ATTEND Family Medicine | DX: I96 Gangrene, not elsewhere classified (principal); L97.512 Non-pressure chronic ulcer of other part of right foot with fat layer exposed; E11.52 Type 2 diabetes mellitus with diabetic peripheral angiopathy with gangrene; E11.621 Type 2 diabetes mellitus with foot ulcer; M20.41 Other hammer toe(s) (acquired), right foot; E11.40 Type 2 diabetes mellitus with diabetic neuropathy, unspecified; E66.09 Other obesity due to excess calories; F15.90 Other stimulant use, unspecified, uncomplicated; Z68.33 Body mass index [BMI] 33.0-33.9, adult | CPT/HCPCS: 11042; G0463 ==

== ENCOUNTER → 2021-11-10 | Outpatient (CLI) | payer BC | LOC: WOUNDCARE 14:09 | PROVIDERS: ATTEND Family Medicine | DX: L97.512 Non-pressure chronic ulcer of other part of right foot with fat layer exposed (principal); E11.621 Type 2 diabetes mellitus with foot ulcer; M20.41 Other hammer toe(s) (acquired), right foot; E11.610 Type 2 diabetes mellitus with diabetic neuropathic arthropathy; E66.09 Other obesity due to excess calories; E11.52 Type 2 diabetes mellitus with diabetic peripheral angiopathy with gangrene; F15.90 Other stimulant use, unspecified, uncomplicated | CPT/HCPCS: 11042; A6207; G0463 ==

== ENCOUNTER → 2021-11-19 | Outpatient (CLI) | payer BC | LOC: WOUNDCARE 15:29 | PROVIDERS: ATTEND Family Medicine | DX: E11.621 Type 2 diabetes mellitus with foot ulcer (principal); E11.52 Type 2 diabetes mellitus with diabetic peripheral angiopathy with gangrene; I96 Gangrene, not elsewhere classified; M20.41 Other hammer toe(s) (acquired), right foot; E11.40 Type 2 diabetes mellitus with diabetic neuropathy, unspecified; E66.09 Other obesity due to excess calories; F15.90 Other stimulant use, unspecified, uncomplicated; Z68.33 Body mass index [BMI] 33.0-33.9, adult | CPT/HCPCS: 11042; G0463 ==

== ENCOUNTER → 2021-12-09 | Outpatient (CLI) | payer BC | LOC: WOUNDCARE 08:46 | PROVIDERS: ATTEND Family Medicine | DX: E11.621 Type 2 diabetes mellitus with foot ulcer (principal); L97.512 Non-pressure chronic ulcer of other part of right foot with fat layer exposed; M20.41 Other hammer toe(s) (acquired), right foot; E11.40 Type 2 diabetes mellitus with diabetic neuropathy, unspecified; E11.52 Type 2 diabetes mellitus with diabetic peripheral angiopathy with gangrene; I96 Gangrene, not elsewhere classified; E66.09 Other obesity due to excess calories; F15.90 Other stimulant use, unspecified, uncomplicated; Z68.33 Body mass index [BMI] 33.0-33.9, adult | CPT/HCPCS: 11042; G0463 ==

== ENCOUNTER → 2021-12-16 | Outpatient (CLI) | payer BC | LOC: WOUNDCARE 08:53 | PROVIDERS: ATTEND Family Medicine | DX: L97.512 Non-pressure chronic ulcer of other part of right foot with fat layer exposed (principal); E11.621 Type 2 diabetes mellitus with foot ulcer; M20.41 Other hammer toe(s) (acquired), right foot; E11.610 Type 2 diabetes mellitus with diabetic neuropathic arthropathy; E66.09 Other obesity due to excess calories; F15.90 Other stimulant use, unspecified, uncomplicated; E11.52 Type 2 diabetes mellitus with diabetic peripheral angiopathy with gangrene; I96 Gangrene, not elsewhere classified | CPT/HCPCS: 11042; G0463 ==

== ENCOUNTER → 2021-12-24 | Outpatient (CLI) | payer BC | LOC: WOUNDCARE 15:06 | PROVIDERS: ATTEND Family Medicine | DX: L97.512 Non-pressure chronic ulcer of other part of right foot with fat layer exposed (principal); E11.621 Type 2 diabetes mellitus with foot ulcer; E11.610 Type 2 diabetes mellitus with diabetic neuropathic arthropathy; E66.09 Other obesity due to excess calories; M20.41 Other hammer toe(s) (acquired), right foot; E11.42 Type 2 diabetes mellitus with diabetic polyneuropathy; F15.90 Other stimulant use, unspecified, uncomplicated | CPT/HCPCS: 11042; G0463 ==

== ENCOUNTER → 2021-12-29 | Outpatient (CLI) | payer BC | LOC: WOUNDCARE 08:50 | PROVIDERS: ATTEND Family Medicine | DX: E11.621 Type 2 diabetes mellitus with foot ulcer (principal); I96 Gangrene, not elsewhere classified; E11.52 Type 2 diabetes mellitus with diabetic peripheral angiopathy with gangrene; L97.512 Non-pressure chronic ulcer of other part of right foot with fat layer exposed; M20.41 Other hammer toe(s) (acquired), right foot; E11.610 Type 2 diabetes mellitus with diabetic neuropathic arthropathy; E66.09 Other obesity due to excess calories; F15.90 Other stimulant use, unspecified, uncomplicated; Z68.33 Body mass index [BMI] 33.0-33.9, adult | CPT/HCPCS: 87070; 87205; G0463; 99213 ==

== ENCOUNTER → 2021-12-31 | Outpatient (CLI) | payer BC | LOC: WOUNDCARE 15:01 | PROVIDERS: ATTEND Family Medicine | DX: E11.621 Type 2 diabetes mellitus with foot ulcer (principal); L97.512 Non-pressure chronic ulcer of other part of right foot with fat layer exposed; M20.41 Other hammer toe(s) (acquired), right foot; L03.115 Cellulitis of right lower limb; E11.610 Type 2 diabetes mellitus with diabetic neuropathic arthropathy; E66.09 Other obesity due to excess calories; F15.90 Other stimulant use, unspecified, uncomplicated; E11.52 Type 2 diabetes mellitus with diabetic peripheral angiopathy with gangrene; I96 Gangrene, not elsewhere classified | CPT/HCPCS: 99212 ==

== ENCOUNTER → 2022-01-05 | Outpatient (CLI) | payer BC | LOC: WOUNDCARE 08:51 | PROVIDERS: ATTEND Family Medicine | DX: L97.512 Non-pressure chronic ulcer of other part of right foot with fat layer exposed (principal); E11.621 Type 2 diabetes mellitus with foot ulcer; M20.41 Other hammer toe(s) (acquired), right foot; L03.115 Cellulitis of right lower limb; E11.610 Type 2 diabetes mellitus with diabetic neuropathic arthropathy; E66.09 Other obesity due to excess calories; F15.90 Other stimulant use, unspecified, uncomplicated; B95.62 Methicillin resistant Staphylococcus aureus infection as the cause of diseases classified elsewhere; E11.52 Type 2 diabetes mellitus with diabetic peripheral angiopathy with gangrene; I96 Gangrene, not elsewhere classified | CPT/HCPCS: 11042 ==

== ENCOUNTER 2022-01-09 05:27 | Outpatient (CLI) | payer BC ==
[~2022-01-09] VITALS: Ht 182.9 cm; Wt 109.0 kg
[2022-01-09] MEDS ORDERED: LNZ600T PO (13:44)
[2022-01-09] MEDS ORDERED: AMPH30TA2 PO (13:44)
[2022-01-09] MEDS ORDERED: DAPA10TA PO (13:44)
== END 2022-01-09 14:00 | disposition home or self-care (01) ==
LOC: PREOP 05:27
PROVIDERS: ATTEND Podiatrist Foot & Ankle Surgery
DX: Z01.818 Encounter for other preprocedural examination (principal)

== ENCOUNTER 2022-01-16 11:34 | Day surgery (SDC) | payer BC ==
[~2022-01-16] VITALS: Ht 182 cm; Wt 109.0 kg
[2022-01-16] VITALS (11 sets, daily range): BP systolic 111–150; BP diastolic 69–94
[~2022-01-16 11:34] MED LIST changes: +DAPA10TA PO; +LNZ600T PO
[2022-01-16] MEDS ORDERED: LIDOCAINE 1% INJ 10 ML VIAL ONE (12:12)
[2022-01-16] MEDS ORDERED: BUPIVACAINE 0.5% 30 ML (SENSORCAINE) VIAL ONE (12:12)
[2022-01-16] MEDS ORDERED: ceFAZolin INJECTION 1,000 MG in NS (IVPB) 50 ML IV ONE (12:15)
[2022-01-16] MEDS ORDERED: fentaNYL INJ 100 MCG/2 ML AMP ONE (12:30)
[2022-01-16] MEDS ORDERED: MIDAZOLAM 2 MG/2 ML (VERSED) VIAL ONE (12:30)
[2022-01-16] MEDS ORDERED: ONDANSETRON 4 MG/2 ML (SDV) Z0FRAN ONE (12:36)
[2022-01-16] MEDS ORDERED: proPOfol 200 MG/20 ML (DIPRIVAN) VIAL IV ONE ×2 (12:36→13:04)
[2022-01-16] MEDS: LACTATED RINGERS 1,000 ML IV PRN ×2 (12:40→14:26)
--- NOTE | 2022-01-16 12:45 | Progress Note-Pre Operative ---
Pre-Operative Progress Note Date of Available H&P: Jan 16, 2022 Date H&P Reviewed: Jan 16, 2022 Time H&P Reviewed: 12:45 Pre-Operative Diagnosis: Chronic Ulcer R1 toe, Hammertoe right JEMAL WEBER DPRusty Jan 16, 2022 12:45
[2022-01-16] MEDS ORDERED: SEVOFLURANE (ULTANE) 15 ML INHAL SOLN ONE (13:04)
[2022-01-16] MEDS ORDERED: HYDROmorphone 2 MG/ML VIAL (DILAUDID) ONE (13:17)
[2022-01-16] MEDS ORDERED: KETOROLAC 30 MG/ML VIAL ONE (14:00)
[2022-01-16] MEDS ORDERED: LACTATED RINGERS 1,000 ML IV SCH (14:15)
[2022-01-16] MEDS ORDERED: HYDROcodone/APAP 5 MG/325 MG (LORTAB) TAB PO PRN (14:15)
--- NOTE | 2022-01-16 14:15 | Progress Note-Post Operative ---
Post-Operative Progess Note Surgeon (s)/Machine Marker (s) Surgeon JEMAL WEBER DPM Machine Marker: none Pre-Operative Diagnosis Chronic Ulcer R1 toe, Hammertoe right Post-Operative Diagnosis Same Procedure & Operative Findings Date of Procedure 01/16/22 Procedure Performed/Findings Partial amputation of the right hallux and right 2nd toe Anesthesia Type General Estimated Blood Loss Estimated blood loss (mL): Minimal Specimens/Packing Specimens Removed Right hallux, distal phalanx JEMAL WEBER DPM Jan 16, 2022 14:15
[2022-01-16] MEDS ORDERED: ACHD5005 PO (14:18)
[2022-01-16] MEDS ORDERED: CEPH500C PO (14:18)
[2022-01-16] MEDS ORDERED: HYDROmorphone 2 MG/ML VIAL (DILAUDID) IV ONE (14:30)
[2022-01-16] MEDS ORDERED: ONDANSETRON 4 MG/2 ML (SDV) Z0FRAN IVP PRN (14:30)
--- NOTE | 2022-01-16 14:47 | Physical Therapy Progress Note ---
Therapy Progress Note Per RN, patient will be PWB right foot with surgical shoe in place and use of crutches. Family present and states patient has established crutches and has used AD's prior. Family declined PT intervention at this time. PT instructed family and RN if patient requests PT services, to call our extension. RN voices understanding. BRIANA WALLER PT Jan 16, 2022 14:47
--- NOTE | 2022-01-16 15:56 | Diagnostic Imaging Report ---
INDICATION: Postop foot. COMPARISON: 06/08/2021. FINDINGS: Two radiographic views of the right foot were obtained. Patient is status post interval amputation of the 1st distal phalanx. The 2nd distal phalanx also appears to be now surgically absent. There is chronic deformity involving the 2nd proximal phalanx. No unexpected radiopaque foreign bodies are seen. There is associated soft tissue swelling and soft tissue emphysema of the 1st and 2nd toes. IMPRESSION: Postoperative changes of partial amputation of the 1st and 2nd toes, as above. No unexpected radiopaque foreign bodies. Dictated by: Dictated on workstation # [id number]
--- NOTE | 2022-01-16 23:07 | OPERATIVE REPORT ---
DATE OF SERVICE: 01/16/2022 SURGEON: Angella Lindsey DPM. PREOPERATIVE DIAGNOSES: 1. Hammer digit syndrome, right second toe. 2. Hallux malleus with osteomyelitis, distal phalanx, right hallux. POSTOPERATIVE DIAGNOSES: 1. Hammer digit syndrome, right second toe. 2. Hallux malleus with osteomyelitis, distal phalanx, right hallux. PROCEDURE: 1. Partial amputation of the right hallux. 2. Partial amputation of the right second toe. WOUND CLASS: Contaminated. ANESTHESIA: General. HEMOSTASIS: Pneumatic ankle tourniquet at 250 mmHg. INDICATIONS: This 41-year-old male presents complaining of a chronic wound to the right great toe and history of partial wound to the right second. Conservative therapy is met with unsatisfactory results and the patient is agreeable to surgical intervention after risks and complications were discussed at length. He is aware of the consequences of partial amputation about how this will disrupt some of his balance. He is willing proceed. DESCRIPTION OF PROCEDURE: The patient was brought back to the operating table, placed in a secure supine position. General anesthetic was then induced. Appropriate timeout was performed. The right ankle had a tourniquet applied over several layers of padding. The right foot was then prepped and draped in normal sterile manner. The right foot was then elevated, allowed to exsanguinate after which the tourniquet was inflated to 250 mmHg. Attention was then directed to the right hallux, which was covered in a sterile drape. The right second toe was addressed with a surgical intervention. He had a rigid contracture of the right second toe. No open wounds were identified. We did an incision from the medial and lateral aspect of the distal interphalangeal joint area, but extended on the dorsal aspect of the digit. A second incision was performed from the medial and lateral aspect of the distal interphalangeal joint extending just distally to the hyponychium. Sharp dissection from the dorsal aspect of the toe down to the dorsal aspect of the distal interphalangeal joint where the extensor tendons were released and medial lateral collateral ligaments were also released. The incision was also extended from the hyponychium proximally underneath the distal phalanx, which allowed for removal completely of the distal phalanx. There are no open wounds and no abnormalities noticed to bone and it was not my opinion that it should be sent for pathological evaluation at this point. The extensor and flexor tendons were cut as flexed as proximally as possible. No abnormalities were noted to the soft tissue, no purulence, no necrosis. The wound was flushed with power irrigation, after which closure was performed. The plantar flap was approximated to the dorsal aspect of the distal interphalangeal joint area. Utilizing through 4-0 Vicryl in a simple interrupted type stitch. Excellent apposition was appreciated without any significant tension to the skin. The right second toe was dressed with Betadine-soaked Adaptic and a sterile dressing. Attention was then directed to the right hallux where a partial amputation of the toe was performed. The incisions began at the interphalangeal joint of the hallux extending to the hyponychium as well as from the medial aspect of the interphalangeal joint dorsally. Once again, the dissection was carried out down to bone and to the interphalangeal joint. The extensor and flexor tendons were sharply incised. Medial and lateral collateral ligaments were removed, allowing for the right hallux toenail and underlying distal phalanx to be removed. This was sent for gross and microscopic evaluation. It should be noted that the plantar aspect of the distal phalanx was soft and irregular in shape. Some of this bone was sent for cultures and sensitivity. The remaining soft tissue was within normal limits with the exception of some inflammatory soft tissue adjacent to the ulceration extension from the hyponychium into the plantar aspect of what was the distal phalanx. This area was debrided sharply. No other abnormalities were identified. No purulence, no proximal streaking. No deep probing or tunneling noted. The wound was flushed with power irrigation, after which a swab culture was taken. The plantar flap was then approximated to the dorsal aspect of the remaining right hallux utilizing 4-0 Prolene in a simple interrupted type stitch. Excellent apposition and lack of tension to the skin was noted at this time. The tourniquet was released noting appropriate cap refill time to all digits of the right foot. Postoperative injection consisted of 16 mL of 0.5% Marcaine injected in a local infusion to the right first and second digits. Betadine-soaked Adaptic was reapplied to the first and second digits of the right foot with sterile 4 x 4, sterile Kerlix all secured with a Coban wrap. The patient tolerated the anesthesia and procedure well and was transported from the operating room to the recovery room with vital signs stable and vascular status intact to all remaining digits of the right foot. He is to follow up in my office in one week period of time or sooner if necessary. He is to be weightbearing for only activities of daily living. Otherwise, he is to be nonweightbearing. Job ID: [id number] DocumentID: [id number] Dictated Date: 01/16/2022 14:29:28 Boxing Inspector Date: 01/16/2022 23:07:05 Dictated By: ADOLFO LOREDO
--- NOTE | 2022-01-19 09:41 | Anesthesia-General Post-Op ---
General Patient Condition Mental Status/LOC: Same as Preop Cardiovascular: Satisfactory Nausea/Vomiting: Absent Respiratory: Satisfactory Pain: Controlled Complications: Absent Post Op Complications Complications None Follow Up Care/Instructions Patient Instructions None needed. Anesthesia/Patient Condition Patient Condition Patient is doing well, no complaints, stable vital signs, no apparent adverse anesthesia problems. No complications reported per nursing. D/C home per [facility] – [place] Criteria: Yes GEOFFREY GANNON CRNA Jan 19, 2022 09:41
== END 2022-01-16 16:25 | disposition home or self-care (01) ==
LOC: SDC 11:34
PROVIDERS: ATTEND Podiatrist Foot & Ankle Surgery
DX: M20.41 Other hammer toe(s) (acquired), right foot (principal); M86.671 Other chronic osteomyelitis, right ankle and foot; M87.9 Osteonecrosis, unspecified; E11.65 Type 2 diabetes mellitus with hyperglycemia; E78.49 Other hyperlipidemia; F90.2 Attention-deficit hyperactivity disorder, combined type; M19.90 Unspecified osteoarthritis, unspecified site
CPT/HCPCS: 73620; 82947; 87070; 87075; 87081; 87101; 87205; 88305; 88311

== ENCOUNTER → 2023-01-29 | Outpatient (CLI) | payer BC ==
[~2023-01-29] MED LIST changes: +ACHD5005 PO; -CELE-63; +CELE-91; +CEPH500C PO
[2023-01-29 08:29] LABS: ALBUMIN 4.3 GM/DL (3.2-4.5)
[2023-01-29 08:30] LABS: POTASSIUM 4.4 MMOL/L (3.6-5.0)
[2023-01-29 08:31] LABS: CALCIUM 9.2 MG/DL (8.5-10.1)
[2023-01-29 08:32] LABS: TOTAL PROTEIN 7.5 GM/DL (6.4-8.2)
[2023-01-29 08:34] LABS: BILIRUBIN,TOTAL 0.6 MG/DL (0.1-1.0)
[2023-01-29 08:36] LABS: CREATININE SERUM 0.94 MG/DL (0.60-1.30)
== END ==
LOC: LAB 08:04
PROVIDERS: ATTEND Nurse Practitioner Family
DX: I49.8 Other specified cardiac arrhythmias (principal); R07.89 Other chest pain; I10 Essential (primary) hypertension
CPT/HCPCS: 36415; 80053; 82550; 85379; 85652

== ENCOUNTER → 2023-02-02 | Outpatient (CLI) | payer BC ==
[~2023-02-02] MED LIST changes: +CATHETER FLUSH 10 ML SYR IVP PRN
[2023-02-02 07:58] VITALS: BP 141/80
--- NOTE | 2023-02-02 12:05 | Cardiology Stress Test Report ---
Stress Test Report Date of Procedure/Referring: Date of Procedure: Feb 02, 2023 PCP Rosibel Trevino Dnp Admitting Physician Admitting Physician: Attending Physician: Rosibel Trevino Dnp Baseline Vital Signs Vital Signs Date Time Temp Pulse Resp B/P (MAP) Pulse Ox O2 Delivery O2 Flow Rate FiO2 02/02/23 07:58 86 141/80 (100) Summary: Patient receive a resting and stress dose of Myoview, images were acquired and reviewed in the short axis view, horizontal long axis view and vertical long axis view. TID: 0.91 SSS: 1 SDS: 1 EF: 52 Poor quality SPECT images with patchy uptake, no attenuation correction protocol was used, overall there is decrease uptake involving the basal to mid inferior wall which is fixed. No significant ischemia was noted Normal left ventricular size, ejection fraction 52% Copy Copies To 1: CB TREVINO BASHAR J MD Feb 02, 2023 12:05
== END ==
LOC: CARD 07:02
PROVIDERS: ATTEND Nurse Practitioner Family
DX: R07.89 Other chest pain (principal)
CPT/HCPCS: 78452; 93017; A9502

== ENCOUNTER 2023-02-19 19:06 | Emergency (ER) | payer BC ==
[~2023-02-19] VITALS: Ht 182 cm; Wt 108.8 kg
[~2023-02-19 19:06] MED LIST changes: -CATHETER FLUSH 10 ML SYR IVP PRN
[2023-02-19 19:27] LABS: BASOPHILS # (AUTO) 0.1 10^3/uL (0.0-0.1); BASOPHILS % (AUTO) 1 % (0-10); EOSINOPHILS # (AUTO) 0.1 10^3/uL (0.0-0.3); EOSINOPHILS % (AUTO) 1 % (0-10); HEMATOCRIT 46 % (40-54); HEMOGLOBIN 15.1 g/dL (13.3-17.7); LYMPHOCYTES # (AUTO) 4.2 10^3/uL (1.0-4.0); LYMPHOCYTES % (AUTO) 48 % (12-44); MEAN CORPUSCULAR HEMOGLOBIN 29 pg (25-34); MEAN CORPUSCULAR HGB CONC 33 g/dL (32-36); MEAN CORPUSCULAR VOLUME 89 fL (80-99); MEAN PLATELET VOLUME 10.3 fL (9.0-12.2); MONOCYTES # (AUTO) 0.8 10^3/uL (0.0-1.0); MONOCYTES % (AUTO) 9 % (0-12); NEUTROPHILS # (AUTO) 3.4 10^3/uL (1.8-7.8); NEUTROPHILS % (AUTO) 40 % (42-75); PLATELET COUNT 245 10^3/uL (130-400); WHITE BLOOD COUNT 8.6 10^3/uL (4.3-11.0)
--- NOTE | 2023-02-19 19:27 | ED Cardiac General ---
History of Present Illness General Chief Complaint: Chest Pain Stated Complaint: CHEST PAIN/HIGH BP Nursing Triage Note: PT PRESENTS TO ED WITH C/O INTERMITTENT CHEST PAIN AND HIGH BP X 3 WEEKS THAT WORSENS WHEN HE LAYS DOWN. PT ALSO REPORTS COUGHING. PT TAKED MEDS FOR BP CURRENTLY BUT IT DOESN'T HELP. STRESS TEST DONE 02.02.23 TURNED OUT GOOD. Source: patient Exam Limitations: no limitations History of Present Illness Date Seen by Provider: Feb 19, 2023 Time Seen by Provider: 19:22 Initial Comments Patient is a 42-year-old male with a history of hypertension, type 2 diabetes presents to the ED with intermittent chest pain over the past 3 weeks. Patient states chest pain seems to be worse when he lies down but does have pain with exertion. Associate shortness of breath but denies cough. States pain started today around 1 PM. 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 Patient started having this left-sided chest pain rates 4 out of 10. Does take hydrocodone for chronic joint pain. No improvement with hydrocodone. States he had a cardiac stress test last month which was reassuring. Had a recent calcium score test 1 week ago at [facility] and states his number was 280. Patient states chest pain started to develop after he received a flu shot 3 weeks ago. He reports blurry vision. Denies of any fever chills nausea, vomiting, diarrhea, headache or dizziness. No recent travels or surgeries. Strong family cardiac history. History of hypertension currently on amlodipine. Type II diabetic. Allergies and Home Medications Allergies Coded Allergies: No Known Drug Allergies (Unverified , 10/31/18) Patient Home Medication List Home Medication List Reviewed: Yes Cephalexin (Cephalexin) 500 Mg Capsule, 1 CAP PO TID Prescribed by: JEMAL WEBER on 01/16/22 1418 Dapagliflozin Propanediol (Farxiga) 10 Mg Tablet, 10 MG PO DAILY, (Reported) Entered as Reported by: MING RIVAS on 01/09/22 1344 Dextroamphetamine/Amphetamine (Adderall 30 mg Tablet) 30 Mg Tablet, 30 MG PO BID, (Reported) Entered as Reported by: MING RIVAS on 01/09/22 1344 Hydrocodone/Acetaminophen (Hydrocodone/Acetaminophen 5 MG/325 MG TAB) 1 Each Tablet, 1 TAB PO Q4-6HR Prescribed by: BROOKE MUKHERJEE on 10/27/18 1523 Hydrocodone/Acetaminophen (Hydrocodone-Acetamin 5-325 mg) 5 Mg-325 Mg Tablet, 1 TAB PO Q4H PRN for PAIN-MODERATE (5-7) Prescribed by: JEMAL WEBER on 01/16/22 1419 Linezolid (Linezolid) 600 Mg Tablet, 600 MG PO BID, (Reported) Entered as Reported by: MING RIVAS on 01/09/22 1344 Rosuvastatin Calcium (Rosuvastatin Calcium) 10 Mg Tablet, 20 DAILY, (Reported) Entered as Reported by: DANA HONG on 06/08/20 0754 Review of Systems Review of Systems Constitutional: No chills, No diaphoresis, No malaise, No weakness EENTM: No Double Vision, No Eye Pain Respiratory: Denies Orthopnea; Shortness of Air Cardiovascular: Chest Pain Gastrointestinal: Denies Abdomen Distended, Denies Abdominal Pain, Denies Blood Streaked Stools, Denies Nausea, Denies Poor Appetite Genitourinary: Denies Burning, Denies Discharge, Denies Frequency Musculoskeletal: No back pain, No joint pain Skin: No change in color, No change in hair/nails All Other Systems Reviewed Negative Unless Noted: Yes Past Lanlsqm-Ysmffy-Bhigil Hx Patient Social History Tobacco Use?: No Substance use?: No Alcohol Use?: No Pt feels they are or have been: No Immunizations Up To Date Tetanus Booster (TDap): Unknown First/Initial COVID19 Vaccinat: 2020 Second COVID19 Vaccination Tres: 2020 Third COVID19 Vaccination Date: 2021 Seasonal Allergies Seasonal Allergies: No Past Medical History Surgeries: Yes (arthroscopic surgery left knee x2, cervical spine surgery, ESWL) Orthopedic, Renal Respiratory: No Currently Using CPAP: No Currently Using BIPAP: No Cardiac: No Hypertension Neurological: Yes (MEDICATION INDUCED HEADACHES) Headaches /Migraines Reproductive Disorders: No Sexually Transmitted Disease: No HIV/AIDS: No Genitourinary: Yes Kidney Stones, UTI-Chronic Gastrointestinal: Yes (acute gastroenteritis) Musculoskeletal: Yes (CERVICAL SX c5-c6 fusion, CHRONIC PAIN, ULCER OF TOES) Arthritis, Fibromyalgia Endocrine: Yes Diabetes, Non-Insulin dep HEENT: No (GLASSES/CONTACTS) Loss of Vision: Denies Hearing Impairment: Denies Cancer: No Psychosocial: Yes Depression Integumentary: Yes Eczema Blood Disorders: No Adverse Reaction/Blood Tranf: No (N/A) Family Medical History No Pertinent Family Hx Physical Exam Vital Signs Vital Signs - First Documented 02/19/23 19:14 Temp 36.1 Pulse 72 Resp 18 B/P (MAP) 154/92 (112) Pulse Ox 99 O2 Delivery Room Air Capillary Refill : Less Than 3 Seconds Height, Weight, BMI Height: 6'0.00" Weight: 260lbs. 0.0oz. [id number]; 32.00 BMI Method:Actual General Appearance: No Apparent Distress, WD/WN HEENT: PERRL/EOMI, TMs Normal, Normal ENT Inspection, Pharynx Normal Neck: Full Range of Motion, Normal Inspection, Non Tender, Supple Respiratory: Chest Non Tender, Lungs Clear, Normal Breath Sounds, No Accessory Muscle Use, No Respiratory Distress Cardiovascular: Regular Rate, Rhythm, No Edema, No Gallop, No JVD Gastrointestinal: Normal Bowel Sounds, No Organomegaly, No Pulsatile Mass Extremity: Normal Capillary Refill, Normal Inspection, Normal Range of Motion, Non Tender Neurologic/Psychiatric: Alert, Oriented x3, No Motor/Sensory Deficits, Normal Mood/Affect, 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 Norm as Tested Skin: Normal Color, Warm/Dry Progress/Results/Core Measures Results/Orders Lab Results Laboratory Tests Test 02/19/23 19:15 02/19/23 21:17 Range/Units White Blood Count 8.6 4.3-11.0 10^3/uL Red Blood Count 5.20 4.30-5.52 10^6/uL Hemoglobin 15.1 13.3-17.7 g/dL Hematocrit 46 40-54 % Mean Corpuscular Volume 89 80-99 fL Mean Corpuscular Hemoglobin 29 25-34 pg Mean Corpuscular Hemoglobin Concent 33 32-36 g/dL Red Cell Distribution Width 13.1 10.0-14.5 % Platelet Count 245 130-400 10^3/uL Mean Platelet Volume 10.3 9.0-12.2 fL Immature Granulocyte % (Auto) 0 % Neutrophils (%) (Auto) 40 L 42-75 % Lymphocytes (%) (Auto) 48 H 12-44 % Monocytes (%) (Auto) 9 0-12 % Eosinophils (%) (Auto) 1 0-10 % Basophils (%) (Auto) 1 0-10 % Neutrophils # (Auto) 3.4 1.8-7.8 10^3/uL Lymphocytes # (Auto) 4.2 H 1.0-4.0 10^3/uL Monocytes # (Auto) 0.8 0.0-1.0 10^3/uL Eosinophils # (Auto) 0.1 0.0-0.3 10^3/uL Basophils # (Auto) 0.1 0.0-0.1 10^3/uL Immature Granulocyte # (Auto) 0.0 0.0-0.1 10^3/uL Prothrombin Time 13.3 12.2-14.7 SEC INR Comment 1.0 0.8-1.4 Activated Partial Thromboplast Time 29 24-35 SEC D-Dimer < 0.27 0.00-0.49 UG/ML Sodium Level 139 135-145 MMOL/L Potassium Level 3.4 L 3.6-5.0 MMOL/L Chloride Level 104 98-107 MMOL/L Carbon Dioxide Level 24 21-32 MMOL/L Anion Gap 11 5-14 MMOL/L Blood Urea Nitrogen 14 7-18 MG/DL Creatinine 0.85 0.60-1.30 MG/DL Estimat Glomerular Filtration Rate 113 BUN/Creatinine Ratio 16 Glucose Level 147 H 70-105 MG/DL Calcium Level 9.3 8.5-10.1 MG/DL Corrected Calcium 8.5-10.1 MG/DL Magnesium Level 2.3 1.6-2.4 MG/DL Total Bilirubin 0.5 0.1-1.0 MG/DL Aspartate Amino Transf (AST/SGOT) 19 5-34 U/L Alanine Aminotransferase (ALT/SGPT) 43 0-55 U/L Alkaline Phosphatase 48 40-136 U/L Myoglobin 37.1 10.0-92.0 NG/ML Troponin I < 0.028 < 0.028 <0.028 NG/ML B-Type Natriuretic Peptide < 10.0 <100.0 PG/ML Total Protein 7.8 6.4-8.2 GM/DL Albumin 4.7 H 3.2-4.5 GM/DL Lipase 28 8-78 U/L My Orders Orders - HEATH BHATIA Ekg Tracing (02/19/23 19:11) Cbc And Automated Diff (02/19/23 19:20) Magnesium (02/19/23 19:20) Chest 1 View, Ap/Pa Only (02/19/23 19:20) Ekg Tracing (02/19/23:20) Comprehensive Metabolic Panel (02/19/23 19:20) Myoglobin Serum (02/19/23 19:20) Protime With Inr (02/19/23 19:20) Partial Thromboplastin Time (02/19/23 19:20) O2 (02/19/23:20) Monitor-Rhythm Ecg Trace Only (02/19/23 19:20) Ed Iv/Invasive Line Start (02/19/23 19:20) Lipase (02/19/23:20) Bnp [place] (02/19/23:20) Fibrin Degradation Products (02/19/23:20) Troponin I [place] (02/19/23 19:20) Morphine Injection (Morphine Injection (02/19/23 19:30) Aspirin Chewable Tablet (Aspirin Chewabl (02/19/23 19:30) Troponin I [place] (02/19/23 21:15) Medications Given in ED Vital Signs/I&O 02/19/23 02/19/23 19:14 22:28 Temp 36.1 36.2 Pulse 72 67 Resp 18 14 B/P (MAP) 154/92 (112) 110/72 Pulse Ox 99 95 O2 Delivery Room Air Room Air Blood Pressure Mean: 112 Comment Sinus rhythm with occasional ventricular premature complexes, 69 bpm, QRS duration 101 MS, QTc 406 MS. Departure Communication (PCP) Reviewed previous ER visits, H&P, lab testing. Differential diagnoses ACS, pericarditis, myocarditis, PE, pleurisy. Patient has been experiencing chest pain shortness of breath over the past 3 weeks. No known cardiac history but strong family cardiac history. Cardiac work-up was initiated. EKG did show sinus rhythm with PVCs. No evidence of arrhythmia, ST elevation or depression. CBC, CMP, lipase, troponin, BNP and D-dimer was ordered. Patient did receive a full aspirin. Discussed giving nitro but patient refused. Did agree to morphine. Some improvement of pain. CBC, CMP was grossly unremarkable. Normal troponin, BNP and D-dimer. Chest x-ray was negative for pneumonia, pneumothorax. Delta troponin 2 hours was ordered which came back negative. History of hypertension diabetes with cardiac risk factors. Heart score 2. 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 Due to reassuring lab work and length of symptoms suggest outpatient follow-up with cardiology. Did have a cardiac stress test on February 01 which did not note any significant ischemic changes. EF of 52%. If any worsening chest pain or shortness of breath it was recommended come back to the ED for further evaluation. Patient does take a statin. Recommend starting a baby aspirin per cardiology. Currently on BP medication which recommend continue. Follow Up with your PCP in 2 days for reevaluation. Impression Primary Impression: Chest pain Disposition: HOME, SELF-CARE Condition: Stable Departure-Patient Inst. Decision time for Depature: 22:26 Referrals: DENNYS RIVERA MD, PATRICIA L ARNP, DNP (PCP) Primary Care Physician Patient Instructions: Chest Pain, Adult ED Add. Discharge Instructions: Recommend following up with cardiology outpatient. If any worsening chest pain or shortness of breath you need to return back to ED. Start a baby aspirin daily. All discharge instructions reviewed with patient and/or family. Voiced understanding. HEATH BHATIA Feb 19, 2023 19:27
[2023-02-19] MEDS ORDERED: morphine INJ 10 MG/ML 1ML (SYR OR VIAL) IVP ONE (19:30)
[2023-02-19] MEDS ORDERED: ASPIRIN 81 MG CHEWABLE TABLET PO ONE (19:30)
[2023-02-19 19:39] LABS: PROTHROMBIN TIME PATIENT 13.3 SEC (12.2-14.7)
[2023-02-19 19:40] LABS: PARTIAL THROMBOPLASTIN TIME 29 SEC (24-35)
--- NOTE | 2023-02-19 19:45 | Diagnostic Imaging Report ---
INDICATION: Chest pain, shortness of breath, elevated blood pressure, coughing. COMPARISON: None. FINDINGS: Single view of the chest shows normal heart, pleura and diaphragms. No consolidation is seen. There is no effusion or pneumothorax. Soft tissues and bony thorax are grossly unremarkable. IMPRESSION: No acute cardiopulmonary change. Dictated by: Dictated on workstation # [id number]
[2023-02-19 19:46] LABS: ALANINE AMINOTRANSFERASE 43 U/L (0-55); ALBUMIN 4.7 GM/DL (3.2-4.5); ALKALINE PHOSPHATASE 48 U/L (40-136); BILIRUBIN,TOTAL 0.5 MG/DL (0.1-1.0); BUN/CREATININE RATIO 16; CALCIUM 9.3 MG/DL (8.5-10.1); CARBON DIOXIDE 24 MMOL/L (21-32); CHLORIDE 104 MMOL/L (98-107); CREATININE SERUM 0.85 MG/DL (0.60-1.30); GFR ESTIMATED 113; GLUCOSE 147 MG/DL (70-105); LIPASE 28 U/L (8-78); MAGNESIUM 2.3 MG/DL (1.6-2.4); POTASSIUM 3.4 MMOL/L (3.6-5.0); SODIUM 139 MMOL/L (135-145); TOTAL PROTEIN 7.8 GM/DL (6.4-8.2)
[2023-02-19 20:02] LABS: FIBRIN DEGRADATION PRODUCTS < 0.27 UG/ML (0.00-0.49)
[2023-02-19 22:28] VITALS: BP 110/72
== END 2023-02-19 22:32 | disposition home or self-care (01) ==
LOC: EDUNIT# 19:06 → ER 19:08
DX: R07.89 Other chest pain (principal)
CPT/HCPCS: 36415; 71045; 80053; 83690; 83735; 83874; 83880; 84484; 85025; 85379; 85610; 85730; 93005; 93041